=== PATIENT | female | born 1990 | race Two or more races ===

== ENCOUNTER 2018-03-27 08:41 | Emergency (ER) | payer MEDICAID ==
[2018-03-27 09:14] VITALS: BP 138/82
--- NOTE | 2018-03-27 09:24 | ER Document Report ---
ED Medical Screen (RME) - General Chief Complaint: Abdominal Pain Stated Complaint: RIGHT UPPER QUADRANT PAIN Time Seen by Provider: 03/27/18 09:17 Notes: RAPID MEDICAL EVALUATION DISCLOSURE I have seen this patient as part of a Rapid Medical Evaluation and, if applicable, placed any initially appropriate orders. The patient will be seen and fully evaluated, including a full history and physical exam, by a provider ( in Main ED or Fast Track) when a room becomes available. 27-year-old female PMH cholecystectomy here with complaints of right upper quadrant abdominal pain ongoing for the past 2 weeks. Pain is constant nonradiating. It is worse with pressing on the area but, at times, it is improved with pressing on the area. It is not worse with eating. She does not have fevers chills nausea vomiting dysuria hematuria frequency hesitancy. She thinks she might have a UTI. EXAM No abdominal TTP TRAVEL OUTSIDE OF THE [place] IN LAST 30 DAYS: No - Related Data Allergies/Adverse Reactions: No Known Allergies Allergy (Verified 09/13/16 07:46) Past Medical History - Social History Frequency of alcohol use: Occasional Drug Abuse: None Renal/ Medical History: Denies: Hx Peritoneal Dialysis Past Surgical History: Reports: Hx Section, Hx Cholecystectomy - Immunizations Immunizations up to date: Yes Hx Diphtheria, Pertussis, Tetanus Vaccination: Yes Physical Exam - Vital signs Vitals: Temp Pulse Resp BP Pulse Ox 98.1 F 72 16 138/82 H 99 03/27/18 09:10 03/27/18 09:10 03/27/18 09:10 03/27/18 09:10 03/27/18 09:10 Course - Vital Signs Vital signs: Temp Pulse Resp BP Pulse Ox 98.1 F 72 16 138/82 H 99 03/27/18 09:10 03/27/18 09:10 03/27/18 09:10 03/27/18 09:10 03/27/18 09:10
[2018-03-27 09:49] LABS: ABSOLUTE BASOPHILS # (AUTO) 0.1 10^3/uL (0.0-0.2); ABSOLUTE EOSINOPHILS # (AUTO) 0.3 10^3/uL (0.0-0.6); ABSOLUTE LYMPHOCYTES (AUTO) 2.3 10^3/uL (0.5-4.7); ABSOLUTE MONOCYTES (AUTO) 0.6 10^3/uL (0.1-1.4); ABSOLUTE NEUT (AUTO) 6.2 10^3/uL (1.7-8.2); BASOPHILS % (AUTO) 0.6 % (0-2); EOSINOPHILS % (AUTO) 2.9 % (0-6); HEMATOCRIT 40.5 % (36.0-47.0); HEMOGLOBIN 13.4 g/dL (12.0-15.5); LYMPHOCYTES % (AUTO) 24.7 % (13-45); MEAN CORPUSCULAR HGB CONC 33.1 g/dL (32.0-36.0); MEAN CORPUSCULAR VOLUME 82 fl (80-97); MONOCYTES % (AUTO) 6.2 % (3-13); PLATELET COUNT 358 10^3/uL (150-450); RED BLOOD COUNT 4.96 10^6/uL (3.72-5.28); RED CELL DISTRIBUTION WIDTH 15.9 % (11.5-14.0); SEGMENTED NEUTROPHILS % (AUTO) 65.6 % (42-78); TOTAL CELLS COUNTED % (AUTO) 100 %; WHITE BLOOD COUNT 9.4 10^3/uL (4.0-10.5)
[2018-03-27 09:52] LABS: APPEARANCE,URINE CLEAR; BILIRUBIN,URINE NEGATIVE (NEGATIVE); COLOR,URINE STRAW; GLUCOSE, URINE NEGATIVE (NEGATIVE); KETONES,URINE NEGATIVE (NEGATIVE); LEUKOCYTE ESTERASE,URINE NEGATIVE (NEGATIVE); NITRITE,URINE NEGATIVE (NEGATIVE); PROTEIN,URINE NEGATIVE (NEGATIVE); URINE SPECIFIC GRAVITY 1.006; UROBILINOGEN,URINE NEGATIVE mg/dL (<2.0)
[2018-03-27] MEDS ORDERED: MAG HYDROX/AL HYDROX/SIMETH SUSP 30 ML UDCUP PO ONE (09:58)
[2018-03-27] MEDS ORDERED: LIDOCAINE 2% VISCOUS SOLN 20 ML UDCUP PO ONE (09:58)
[2018-03-27] MEDS ORDERED: METOCLOPRAMIDE HCL ORAL SOLN 10 MG/10 ML UDCUP PO ONE (09:58)
[2018-03-27 10:10] LABS: ALANINE AMINOTRANSFERASE 21 U/L (9-52); ALBUMIN 4.3 g/dL (3.5-5.0); ALKALINE PHOSPHATASE 116 U/L (38-126); ANION GAP 13 (5-19); ASPARTATE AMINO TRANSFERASE 21 U/L (14-36); BILIRUBIN,DIRECT 0.2 mg/dL (0.0-0.4); BILIRUBIN,TOTAL 0.2 mg/dL (0.2-1.3); BLOOD UREA NITROGEN 8 mg/dL (7-20); CALCIUM 9.8 mg/dL (8.4-10.2); CARBON DIOXIDE 23 mmol/L (22-30); CHLORIDE 108 mmol/L (98-107); GLUCOSE 94 mg/dL (75-110); LIPASE 75.8 U/L (23-300); POTASSIUM 4.5 mmol/L (3.6-5.0); SODIUM 144.4 mmol/L (137-145); TOTAL PROTEIN 7.5 g/dL (6.3-8.2)
--- NOTE | 2018-03-27 10:45 | ER Document Report ---
ED GI/ - General Chief Complaint: Abdominal Pain Stated Complaint: RIGHT UPPER QUADRANT PAIN Time Seen by Provider: 03/27/18 09:17 Mode of Arrival: Ambulatory Information source: Patient Notes: Pt is a 27 year old female who presents to the ER today for upper abdominal pain , ruq pain for approximately 2 weeks. She works at a [employer] and eats a lot of greasy food. She admits to having acid reflux and taking some tums occasionally. She does not have her gallbladder. She denies vomiting but admits to "bad" nausea. She denies diarrhea. Her last bm was today and normal. She denies fever/chills. TRAVEL OUTSIDE OF THE [place] IN LAST 30 DAYS: No - Related Data Allergies/Adverse Reactions: No Known Allergies Allergy (Verified 09/13/16 07:46) Past Medical History - General Information source: Patient - Social History Smoking Status: Current Every Day Smoker Frequency of alcohol use: Occasional Drug Abuse: None Family History: Reviewed & Not Pertinent Patient has suicidal ideation: No Patient has homicidal ideation: No Renal/ Medical History: Denies: Hx Peritoneal Dialysis Past Surgical History: Reports: Hx Section, Hx Cholecystectomy - Immunizations Immunizations up to date: Yes Hx Diphtheria, Pertussis, Tetanus Vaccination: Yes Review of Systems - Review of Systems Constitutional: No symptoms reported EENT: No symptoms reported Cardiovascular: No symptoms reported Respiratory: No symptoms reported Gastrointestinal: See HPI Genitourinary: No symptoms reported Female Genitourinary: No symptoms reported Musculoskeletal: No symptoms reported Skin: No symptoms reported Hematologic/Lymphatic: No symptoms reported Neurological/Psychological: No symptoms reported Physical Exam - Vital signs Vitals: Temp Pulse Resp BP Pulse Ox 98.1 F 72 16 138/82 H 99 03/27/18 09:10 03/27/18 09:10 03/27/18 09:10 03/27/18 09:10 03/27/18 09:10 - Notes Notes: PHYSICAL EXAMINATION: GENERAL: Well-appearing, smiling, and in no acute distress. HEAD: Atraumatic, normocephalic. EYES: Pupils equal round and reactive to light, extraocular movements intact, sclera anicteric, conjunctiva are normal. NECK: Normal range of motion, supple without lymphadenopathy LUNGS: CTAB and equal. No wheezes rales or rhonchi. HEART: Regular rate and rhythm without murmurs ABDOMEN: Soft, epigastric, ruq tenderness. No guarding, no rebound BACK: no vertebral tenderness, normal ROM GI/: no CVA tenderness EXTREMITIES: Normal range of motion, no pitting edema. No cyanosis. NEUROLOGICAL: Cranial nerves grossly intact. Normal sensory/motor exams. PSYCH: Normal mood, normal affect. SKIN: Warm, Dry, normal turgor, no rashes or lesions noted Course - Re-evaluation Re-evalutation: 03/27/18 11:52 labwork is unremarkable today including normal lipase, negative , and normal liver enzymes. pt feels 100% better after GI cocktail, I will start her on carafate and prilosec, advise no greasy foods and no taking any NSAIDS. I did educate her on these as she's been taking a lot of naproxen she tells me after diagnosis. - Vital Signs Vital signs: Temp Pulse Resp BP Pulse Ox 98.1 F 72 16 138/82 H 99 03/27/18 09:10 03/27/18 09:10 03/27/18 09:10 03/27/18 09:10 03/27/18 09:10 - Laboratory Result Diagrams: 03/27/18 09:32 03/27/18 09:32 Laboratory results interpreted by me: 03/27/18 03/27/18 09:32 09:32 RDW 15.9 H Chloride 108 H Discharge - Discharge Clinical Impression: Epigastric pain, RUQ abdominal pain Condition: Stable Disposition: HOME, SELF-CARE Additional Instructions: Return immediately for any new or worsening symptoms. Follow up with primary care provider, call tomorrow to make followup appointment. Prescriptions: Omeprazole Magnesium [Prilosec Otc] 20 mg PO BID #40 tablet. Sucralfate [Carafate 1 gm Tablet] 1 gm PO ACHS #40 tablet Forms: Return to Work Referrals: VICKY PINEDA MD [ACTIVE STAFF] - Follow up as needed
== END 2018-03-27 11:25 | disposition home or self-care (01) ==
LOC: ER 08:41
DX: R10.11 Right upper quadrant pain (principal); R10.13 Epigastric pain; F17.200 Nicotine dependence, unspecified, uncomplicated; Z90.49 Acquired absence of other specified parts of digestive tract
CPT/HCPCS: 99284; 36415; 83690; 85025; 81025; 80053; 81001; J3490 ×3

== ENCOUNTER 2018-10-08 08:35 | Emergency (ER) | payer MEDICAID ==
[2018-10-08] MEDS ORDERED: ALBUTEROL SULFATE 0.083% NEB 2.5 MG/3 ML AMPUL NEB ONE (09:15)
--- NOTE | 2018-10-08 09:25 | ER Document Report ---
ED Respiratory Problem - General Chief Complaint: Shortness Of Breath Stated Complaint: FLU SYMPTOMS Time Seen by Provider: 10/08/18 09:05 TRAVEL OUTSIDE OF THE [place] IN LAST 30 DAYS: No - HPI Notes: Patient is a 27-year-old female that presents to the emergency department for chief complaint of chest pain and shortness of breath. Patient is with a history of 2 sections in the past at 27 weeks 1 day gestational age. She started having substernal chest pain that radiates to her back yesterday morning. Yesterday afternoon and evening she began to feel very short of breath. She is 1 of her daughter's albuterol treatments which she gave her minimal and temporary relief. She states the pain has been constant and feels like a sharp pain. There is no aggravating or relieving factors to her chest pain. She denies any diaphoresis, nausea, vomiting and palpitations. She denies history of PE in the past. She denies any family history of pulmonary embolism. Patient also states she has had a dry cough for the last few days but denies any fevers. She has tried TheraFlu and over-the- counter cough syrup with no improvement of her coughing. She is currently scheduled for section on January 06. Past Medical History: Negative Past Surgical History: x2 Social History: History of heroin abuse. History of cocaine abuse. Daily tobacco user currently. Denies any alcohol. Family History: Reviewed and noncontributory for presenting illness Allergies: Reviewed, see documented allergy list. REVIEW OF SYSTEMS: CONSTITUTIONAL : No fever No chills No diaphoresis No recent illness EENT: No vision changes No congestion No sore throat CARDIOVASCULAR: chest pain No palpitations RESPIRATORY: shortness of breath cough difficulty breathing GASTROINTESTINAL: No abdominal pain No nausea No vomiting No diarrhea GENITOURINARY: No dysuria No hematuria No difficulty urinating MUSCULOSKELETAL: No back pain No leg pain No arm pain SKIN: No rashes No lesions LYMPHATIC: No swollen, enlarged glands. NEUROLOGICAL: No lightheadedness No headache No weakness No paresthesias PSYCHIATRIC: No anxiety No depression PHYSICAL EXAMINATION: Vital signs reviewed, nursing noted reviewed. GENERAL: Well-appearing, well-nourished and in moderate acute distress. HEAD: Atraumatic, normocephalic. EYES: Eyes appear normal, extraocular movements intact, sclera anicteric, conjunctiva are normal. ENT: nares patent, oropharynx clear without exudates. Moist mucous membranes. NECK: Normal range of motion, supple without lymphadenopathy LUNGS: Diminished bilaterally. No wheezing. HEART: Tachycardic, regular rhythm ABDOMEN: Soft, nontender, gravid uterus palpated above the umbilicus which is soft and nontender. No rebound, guarding, or rigidity. EXTREMITIES: Nontender, good range of motion, no pitting or edema. NEUROLOGICAL: No focal neurological deficits. Moves all extremities spontaneously Motor and sensory grossly intact on exam. PSYCH: Normal mood, normal affect. SKIN: Warm, Dry, normal turgor, no rashes or lesions noted on exposed skin - Related Data Allergies/Adverse Reactions: No Known Allergies Allergy (Verified 09/13/16 07:46) Past Medical History - Social History Smoking Status: Current Some Day Smoker Chew tobacco use (# tins/day): No Frequency of alcohol use: None Drug Abuse: Heroin, Marijuana, Methamphetamine Family History: Reviewed & Not Pertinent Patient has suicidal ideation: No Patient has homicidal ideation: No Renal/ Medical History: Denies: Hx Peritoneal Dialysis Past Surgical History: Reports: Hx Section, Hx Cholecystectomy - Immunizations Immunizations up to date: Yes Hx Diphtheria, Pertussis, Tetanus Vaccination: Yes Physical Exam - Vital signs Vitals: Temp Pulse Resp BP Pulse Ox 98.8 F 126 H 20 126/73 H 83 L 10/08/18 08:42 10/08/18 08:42 10/08/18 08:42 10/08/18 08:42 10/08/18 08:42 Course - Re-evaluation Re-evalutation: 10/08/18 09:25 Vitals reviewed. Nursing notes reviewed. Patient is hypoxic on 4 L nasal cannula and was placed on nonrebreather which improved her oxygen saturation to 99%. She is tachycardic complaining of shortness of breath and chest pain and I am concerned for pulmonary embolism. CTA chest. Was ordered. At [address] Dickson, MACHINIST WOOD, that the patient was in the emergency room and I am concern for pulmonary embolism given her significant hypoxia. She agreed if pulmonary embolism is present to begin Lovenox. Patient's EKG shows a sinus tachycardia with no dysrhythmia. 10/08/18 10:46 Patient reevaluated. Her heart rate is improving. She is still oxygenating on nonrebreather however her work of breathing has increased. CT shows no acute pulmonary embolism but she does have groundglass opacities bilateral concerning for ARDS. Patient is receiving aerosols. She was placed on BiPAP for respiratory support. Case was again discussed with MACHINIST WOOD who recommends admission to the hospitalist group. Case discussed with Dr. Garcia who does not feel comfortable managing this patient in this hospital because of the lack of pulmonary support and high potential that this patient will require intubation and continued to decompensate. They recommend transferring to a facility with in-house retail banker. Patient care discussed with [facility] transfer, currently pending callback for admission. 10/08/18 11:09 Patients care discussed with Dr. Navarro at [facility] who will accept the patient for transfer but they do not currently have any ICU beds. He states it will likely be over 24 hours before an ICU bed is available and he recommends attempting placement at another facility. At this time patient's care was discussed with [facility] transfer line who believes that they would have an ICU bed available. I am currently waiting to hear from admitting physician. Patient is was not tolerating BiPAP, she is now on CPAP and seems to be tolerating that well. 10/08/18 11:58 Patient's care was discussed with Dr. Hunter my critical care, and Dr. Freeman , MACHINIST WOOD at [facility]. Dr. Hunter accepted patient for transfer. Patient was intubated for continued respiratory decompensation and hypoxia. Patient's heart tones prior to intubation were 159. MACHINIST WOOD Dr. Dickson was at bedside during intubation monitoring baby. Baby had heart tones in the 150s and good movement throughout intubation. Patient's oxygen saturation did not decrease past 100% during intubation. She is sedated on the ventilator with propofol and fentanyl. Patient will be transferred to [facility] for further management. I did update MACHINIST WOOD on baby status during and post intubation. Patient's family is now at bedside and in agreement with plan of care. Patient is stable for transport. Laboratory 10/08/18 10/08/18 10/08/18 09:05 09:05 09:05 WBC 19.3 H RBC 3.78 Hgb 10.9 L Hct 31.8 L MCV 84 MCH 28.7 MCHC 34.2 RDW 14.1 H Plt Count 339 Seg Neutrophils % 90.4 H Lymphocytes % 6.8 L Monocytes % 2.1 L Eosinophils % 0.3 Basophils % 0.4 Absolute Neutrophils 17.4 H Absolute Lymphocytes 1.3 Absolute Monocytes 0.4 Absolute Eosinophils 0.1 Absolute Basophils 0.1 Carbonic Acid HCO3/H2CO3 Ratio ABG pH ABG pCO2 ABG pO2 ABG HCO3 ABG Total CO2 ABG O2 Saturation ABG Base Excess FiO2 Sodium 138.3 Potassium 3.5 L Chloride 102 Carbon Dioxide 23 Anion Gap 13 BUN < 2 L Creatinine 0.48 L Est GFR ( Amer) > 60 Est GFR (Non-Af Amer) > 60 Glucose 109 Calcium 9.1 Total Bilirubin 0.7 Direct Bilirubin 0.4 Neonat Total Bilirubin Not Reportable Neonat Direct Bilirubin Not Reportable Neonat Indirect Bili Not Reportable AST 33 ALT 6 L Alkaline Phosphatase 197 H Troponin I < 0.012 NT-Pro-B Natriuret Pep Total Protein 7.1 Albumin 3.6 Urine Color Urine Appearance Urine pH Ur Specific [place] Urine Protein Urine Glucose (UA) Urine Ketones Urine Blood Urine Nitrite Urine Bilirubin Urine Urobilinogen Ur Leukocyte Esterase Urine WBC (Auto) Urine RBC (Auto) Squamous Epi Cells Auto Urine Ascorbic Acid 10/08/18 10/08/18 10/08/18 09:05 09:10 10:45 WBC RBC Hgb Hct MCV MCH MCHC RDW Plt Count Seg Neutrophils % Lymphocytes % Monocytes % Eosinophils % Basophils % Absolute Neutrophils Absolute Lymphocytes Absolute Monocytes Absolute Eosinophils Absolute Basophils Carbonic Acid 1.02 L HCO3/H2CO3 Ratio 22:1 ABG pH 7.44 ABG pCO2 33.9 L ABG pO2 52.3 L ABG HCO3 22.5 ABG Total CO2 23.5 ABG O2 Saturation 88.6 L ABG Base Excess -1.1 FiO2 10L Sodium Potassium Chloride Carbon Dioxide Anion Gap BUN Creatinine Est GFR ( Amer) Est GFR (Non-Af Amer) Glucose Calcium Total Bilirubin Direct Bilirubin Neonat Total Bilirubin Neonat Direct Bilirubin Neonat Indirect Bili AST ALT Alkaline Phosphatase Troponin I NT-Pro-B Natriuret Pep 429 H Total Protein Albumin Urine Color YELLOW Urine Appearance CLEAR Urine pH 6.0 Ur Specific [place] 1.005 Urine Protein 30 H Urine Glucose (UA) NEGATIVE Urine Ketones NEGATIVE Urine Blood NEGATIVE Urine Nitrite NEGATIVE Urine Bilirubin NEGATIVE Urine Urobilinogen 4.0 H Ur Leukocyte Esterase NEGATIVE Urine WBC (Auto) 8 Urine RBC (Auto) 0 Squamous Epi Cells Auto 1 Urine Ascorbic Acid NEGATIVE Chest X-Ray 10/08/18 00:00 IMPRESSION: Pulmonary edema. Tube placement as described. Chest/Abdomen CTA 10/08/18 09:14 IMPRESSION: 1. NORMAL CTA OF THE CHEST. NO PULMONARY EMBOLI. 2. EXTENSIVE DIFFUSE BILATERAL GROUND-GLASS INFILTRATES. POSSIBLE ETIOLOGIES INCLUDE PNEUMONIA, PULMONARY EDEMA, OR PNEUMONITIS. - Vital Signs Vital signs: Temp Pulse Resp BP Pulse Ox 98.8 F 126 H 34 H 104/59 L 100 10/08/18 08:42 10/08/18 08:42 10/08/18 10:16 10/08/18 10:16 10/08/18 10:16 - Laboratory Result Diagrams: 10/08/18 09:05 10/08/18 09:05 Laboratory results interpreted by me: 10/08/18 10/08/18 10/08/18 09:05 09:05 09:05 WBC 19.3 H Hgb 10.9 L Hct 31.8 L RDW 14.1 H Seg Neutrophils % 90.4 H Lymphocytes % 6.8 L Monocytes % 2.1 L Absolute Neutrophils 17.4 H Carbonic Acid ABG pCO2 ABG pO2 ABG O2 Saturation Potassium 3.5 L BUN < 2 L Creatinine 0.48 L ALT 6 L Alkaline Phosphatase 197 H NT-Pro-B Natriuret Pep 429 H Urine Protein Urine Urobilinogen 10/08/18 10/08/18 09:10 10:45 WBC Hgb Hct RDW Seg Neutrophils % Lymphocytes % Monocytes % Absolute Neutrophils Carbonic Acid 1.02 L ABG pCO2 33.9 L ABG pO2 52.3 L ABG O2 Saturation 88.6 L Potassium BUN Creatinine ALT Alkaline Phosphatase NT-Pro-B Natriuret Pep Urine Protein 30 H Urine Urobilinogen 4.0 H - EKG Interpretation by Me Additional EKG results interpreted by me: 10/08/18 09:26 Interpreted by myself Sinus tachycardia, rate 107, normal axis, no ectopy, no ST elevation Critical Care Note - Critical Care Note Total time excluding time spent on procedures (mins): 110 Comments: Hypoxic respiratory failure. Management of respiratory status and sedation. Multiple conversations with specialist at multiple facilities and frequent re- evaluations. Discharge - Discharge Clinical Impression: ARDS (adult respiratory distress syndrome) Pneumonia Qualifiers: Pneumonia type: due to unspecified organism Laterality: bilateral Lung location : unspecified part of lung Qualified Code(s): J18.9 - Pneumonia, unspecified organism Condition: Stable Disposition: [facility]
[2018-10-08 09:30] LABS: APPEARANCE,URINE CLEAR; BILIRUBIN,URINE NEGATIVE (NEGATIVE); COLOR,URINE YELLOW; GLUCOSE, URINE NEGATIVE (NEGATIVE); KETONES,URINE NEGATIVE (NEGATIVE); LEUKOCYTE ESTERASE,URINE NEGATIVE (NEGATIVE); NITRITE,URINE NEGATIVE (NEGATIVE); PROTEIN,URINE 30 mg/dL (NEGATIVE); URINE SPECIFIC GRAVITY 1.005
[2018-10-08 09:35] LABS: ABSOLUTE BASOPHILS # (AUTO) 0.1 10^3/uL (0.0-0.2); ABSOLUTE EOSINOPHILS # (AUTO) 0.1 10^3/uL (0.0-0.6); ABSOLUTE LYMPHOCYTES (AUTO) 1.3 10^3/uL (0.5-4.7); ABSOLUTE MONOCYTES (AUTO) 0.4 10^3/uL (0.1-1.4); ABSOLUTE NEUT (AUTO) 17.4 10^3/uL (1.7-8.2); BASOPHILS % (AUTO) 0.4 % (0-2); EOSINOPHILS % (AUTO) 0.3 % (0-6); HEMATOCRIT 31.8 % (36.0-47.0); HEMOGLOBIN 10.9 g/dL (12.0-15.5); LYMPHOCYTES % (AUTO) 6.8 % (13-45); MEAN CORPUSCULAR HEMOGLOBIN 28.7 pg (27.0-33.4); MEAN CORPUSCULAR HGB CONC 34.2 g/dL (32.0-36.0); MEAN CORPUSCULAR VOLUME 84 fl (80-97); MONOCYTES % (AUTO) 2.1 % (3-13); PLATELET COUNT 339 10^3/uL (150-450); RED BLOOD COUNT 3.78 10^6/uL (3.72-5.28); RED CELL DISTRIBUTION WIDTH 14.1 % (11.5-14.0); SEGMENTED NEUTROPHILS % (AUTO) 90.4 % (42-78); TOTAL CELLS COUNTED % (AUTO) 100 %; WHITE BLOOD COUNT 19.3 10^3/uL (4.0-10.5)
[2018-10-08 09:48] LABS: ALANINE AMINOTRANSFERASE 6 U/L (9-52); ALBUMIN 3.6 g/dL (3.5-5.0); ALKALINE PHOSPHATASE 197 U/L (38-126); ANION GAP 13 (5-19); ASPARTATE AMINO TRANSFERASE 33 U/L (14-36); BILIRUBIN,DIRECT 0.4 mg/dL (0.0-0.4); BILIRUBIN,TOTAL 0.7 mg/dL (0.2-1.3); CALCIUM 9.1 mg/dL (8.4-10.2); CARBON DIOXIDE 23 mmol/L (22-30); CHLORIDE 102 mmol/L (98-107); GLUCOSE 109 mg/dL (75-110); POTASSIUM 3.5 mmol/L (3.6-5.0); SODIUM 138.3 mmol/L (137-145); TOTAL PROTEIN 7.1 g/dL (6.3-8.2)
[2018-10-08 09:49] LABS: BLOOD UREA NITROGEN < 2 mg/dL (7-20)
--- NOTE | 2018-10-08 10:27 | RADIOLOGY REPORT (SQ) ---
EXAM DESCRIPTION: CTA CHEST COMPLETED DATE/TIME: 10/08/2018 10:06 am REASON FOR STUDY: PE study COMPARISON: None. TECHNIQUE: CT scan of the chest performed using helical scanning technique with dynamic intravenous contrast injection. Images reviewed with lung, soft tissue and bone windows. Reconstructed coronal and sagittal MPR images reviewed. Additional 3 dimensional post-processing performed to develop Maximal Intensity Projection images (OR P). All images stored on PACS. All CT scanners at this facility use dose modulation, iterative reconstruction, and/or weight based d osing when appropriate to reduce radiation dose to as low as reasonably achievable (ALARA). [facility]: Dose Right [facility]: CareDose [facility]: Dose Right [facility]: Teradose 4D [facility]: BeVocal CONTRAST TYPE AND DOSE: contrast/concentration: Isovue 350.00 mg/ml; Total Contrast Delivered: 69.0 ml; Total Saline Delivered: 64.8 ml Contrast bolus adequate for pulmonary arteries and aorta. RENAL FUNCTION: None required. The patient is less than 50 years old. RADIATION DOSE: CT Rad equipment meets quality standard of care and radiation dose reduction techniq ues were employed. CTDIvol: 16.5 - 20.2 mGy. DLP: 667 mGy-cm. . LIMITATIONS: None. FINDINGS: LUNGS AND PLEURA: Extensive diffuse bilateral ground-glass infiltrates. No pleural effusi ons or pleural calcifications. AORTA AND GREAT VESSELS: No aneurysm. No dissection. HEART: No pericardial effusion. No significant coronary artery calcifications. PULMONARY ARTERIES: No emboli visualized in the main pulmonary arteries or the segmental branches. HILAR AND MEDIASTINAL STRUCTURES: No identified masses or abnormal nodes. HARDWARE: None in the chest. UPPER ABDOMEN: No significant findings. Limited exam. THYROID AND OTHER SOFT TISSUES: No masses. No adenopathy. BONES: No acute or significant finding. 3D MIPS: Confirm above findings. OTHER: No other significant finding. IMPRESSION: 1. NORMAL CTA OF THE CHEST. NO PULMONARY EMBOLI. 2. EXTENSIVE DIFFUSE BILATERAL GROUND-GLASS INFILTRATES. POSSIBLE ETIOLOGIES INCLUDE PNEUMONIA, PULM ONARY EDEMA, OR PNEUMONITIS. COMMENT: Quality ID # [id number]: Final reports with documentation of one or more dose reduction techniques (e.g., Automated exposure control, adjustment of the mA and/or kV according to patient size, use of iterative reconstruction technique) TECHNICAL DOCUMENTATION: JOB ID: [id number]- All Rights Reserved Reading location - IP/workstation name: [email or web address]
[2018-10-08] MEDS ORDERED: CEFTRIAXONE INJ 1000 MG VIAL IV ONE (10:35)
[2018-10-08] MEDS ORDERED: AZITHROMYCIN INJ 500 MG VIAL IV ONE (10:36)
[2018-10-08 11:04] LABS: ARTERIAL BLOOD BASE EXCESS -1.1 mmol/L; ARTERIAL BLOOD FIO2 10L; ARTERIAL BLOOD H2CO3 1.02 mmol/L (1.05-1.35); ARTERIAL BLOOD HCO3 22.5 mmol/L (20-24); ARTERIAL BLOOD O2 SATURATION 88.6 % (94-98); ARTERIAL BLOOD PCO2 33.9 mmHg (35-45); ARTERIAL BLOOD PH 7.44 (7.35-7.45); ARTERIAL BLOOD PO2 52.3 mmHg (80-100); ARTERIAL BLOOD TOTAL CO2 23.5 mmol/L (21-25)
[2018-10-08] MEDS ORDERED: PROPOFOL INJ 200 MG/20 ML VIAL IV ONE (11:32)
[2018-10-08] MEDS ORDERED: ETOMIDATE INJ/PF 20 MG/10 ML SDV IV ONE (11:32)
[2018-10-08] MEDS ORDERED: PROPOFOL 1,000 MG/100 ML INFUS..BTL IV ONE ×2 (11:41→12:25)
[2018-10-08] MEDS ORDERED: FENTANYL CITRATE INJ/PF 100 MCG/2 ML AMPUL ONE ×3 (11:55→12:12)
--- NOTE | 2018-10-08 12:04 | RADIOLOGY REPORT (SQ) ---
EXAM DESCRIPTION: CHEST SINGLE VIEW COMPLETED DATE/TIME: 10/08/2018 11:55 am REASON FOR STUDY: ET TUBE PLACEMENT COMPARISON: None. EXAM PARAMETERS: NUMBER OF VIEWS: One view. TECHNIQUE: Single frontal radiographic view of the chest acquired. RADIATION DOSE: NA LIMITATIONS: None. FINDINGS: LUNGS AND PLEURA: Pulmonary edema is present. MEDIASTINUM AND HILAR STRUCTURES: No masses. Contour normal. HEART AND VASCULAR STRUCTURES: Heart size is borderline. BONES: No acute findings. HARDWARE: An endotracheal tube has its tip 5 cm above the angela. And NG tube extends to the stomach . OTHER: No other significant finding. IMPRESSION: Pulmonary edema. Tube placement as described. TECHNICAL DOCUMENTATION: JOB ID: [id number] [employer]- All Rights Reserved Reading location - IP/workstation name: [email or web address]
[2018-10-08] MEDS ORDERED: VECURONIUM BROMIDE INJ 10 MG VIAL IV ONE (12:07)
[2018-10-08 12:43] VITALS: BP 101/62
--- NOTE | 2018-10-08 13:38 | EKG REPORT ---
SEVERITY:- ABNORMAL ECG - SINUS TACHYCARDIA NONSPECIFIC ST-T CHANGES ANTERIOR LEADS. : Confirmed by: Cuong Pelayo MD 08-Oct-2018 13:37:35
[2018-10-08] MEDS ORDERED: SUCCINYLCHOLINE CHLORIDE INJ 200 MG/10 ML VIAL ONE (20:48)
== END 2018-10-08 12:45 | disposition short-term general hospital (02) ==
LOC: ER 08:35
DX: O99.512 Diseases of the respiratory system complicating pregnancy, second trimester (principal); J80 Acute respiratory distress syndrome; J18.9 Pneumonia, unspecified organism; O26.892 Other specified pregnancy related conditions, second trimester; R07.9 Chest pain, unspecified; R00.0 Tachycardia, unspecified; O99.332 Smoking (tobacco) complicating pregnancy, second trimester; Z3A.27 27 weeks gestation of pregnancy
CPT/HCPCS: 93005; 94640; 99291; 99292; 51702; 36415; 87040; 82803; 85025; 80053; 81001; 84484; 83880; 71045; 71275; 94660 ×2; 93010; J3010; J2704 ×2; J0330; J3490

== ENCOUNTER 2018-11-28 20:44 | Emergency (ER) | payer MEDICAID ==
[2018-11-28 20:50] VITALS: BP 121/71
== END 2018-11-28 22:30 | disposition left against medical advice (07) ==
LOC: ER 20:44
DX: Z53.21 Procedure and treatment not carried out due to patient leaving prior to being seen by health care provider (principal); R50.9 Fever, unspecified

== ENCOUNTER 2018-11-30 00:42 | Emergency (ER) | payer MEDICAID ==
[2018-11-30] MEDS ORDERED: IPRATROPIUM/ALBUTEROL 0.5-2.5 MG/3 ML AMPUL NEB ONE (00:57)
[2018-11-30] MEDS ORDERED: METHYLPREDNISOLONE INJ 125 MG/2 ML SDV IV ONE (00:57)
[2018-11-30] MEDS ORDERED: METHYLPREDNISOLONE INJ 125 MG/2 ML SDV ONE (00:59)
[2018-11-30] MEDS ORDERED: MAGNESIUM SULFATE/D5W 2 GM/200 ML RTUPB IV ONE (00:59)
[2018-11-30] MEDS ORDERED: RINGERS SOLUTION,LACTATED 2,000 ML IV ONE (01:08)
--- NOTE | 2018-11-30 01:09 | ER Document Report ---
ED General - General Chief Complaint: Breathing Difficulty Stated Complaint: TROUBLE BREATHING Time Seen by Provider: 11/30/18 00:54 Cannot obtain history due to: Unstable vital signs Notes: Patient is a 27-year-old female at 34 weeks and 1 day with a history of 2 previous C-sections who presents in respiratory distress. The patient reports for the past 3 days she has had fever, cough, sore throat and has been exposed to multiple members in her family who have tested positive for flu. The patient reports that her work of breathing got increasingly worse tonight prompting her to come to the emergency department. She has been taking Tamiflu as prescribed by her NOTE TELLER starting 3 days ago. She states this is not improved her symptoms. Nothing worsens her symptoms. She states this feels somewhat similar to when she was hospitalized and required intubation in September but not as severe. She does note a diffuse body aching that is a throbbing, constant pain. TRAVEL OUTSIDE OF THE [place] IN LAST 30 DAYS: No - Related Data Allergies/Adverse Reactions: No Known Allergies Allergy (Verified 09/13/16 07:46) Past Medical History - General Information source: Patient, Relative Cannot obtain history due to: Unstable vital signs - Social History Smoking Status: Former Smoker Frequency of alcohol use: None Drug Abuse: None Lives with: Family Family History: Reviewed & Not Pertinent Renal/ Medical History: Denies: Hx Peritoneal Dialysis Past Surgical History: Reports: Hx Section, Hx Cholecystectomy - Immunizations Immunizations up to date: Yes Hx Diphtheria, Pertussis, Tetanus Vaccination: Yes Review of Systems - Review of Systems Notes: Constitutional: Positive for fever. HENT: Positive for sore throat. Eyes: Negative for visual changes. Cardiovascular: Negative for chest pain. Respiratory: Positive for shortness of breath. Gastrointestinal: Negative for abdominal pain, positive for nausea Genitourinary: Negative for dysuria. Musculoskeletal: Negative for back pain. Skin: Negative for rash. Neurological: Negative for headaches, weakness or numbness. 10 point ROS negative except as marked above and in HPI. Physical Exam - Vital signs Vitals: Temp Pulse Resp BP Pulse Ox 100.3 F 139 H 30 H 133/83 H 90 L 11/30/18 00:47 11/30/18 00:47 11/30/18 00:47 11/30/18 00:47 11/30/18 00:47 Interpretation: Tachycardic, Hypoxic, Tachypneic Notes: PHYSICAL EXAMINATION: GENERAL: Extremely ill in appearance, in moderate to severe respiratory distress HEAD: Atraumatic, normocephalic. EYES: Pupils equal round and reactive to light, extraocular movements intact, sclera anicteric, conjunctiva are normal. ENT: nares patent, oropharynx clear without exudates. Moderately dry mucous membranes. NECK: Normal range of motion, supple without lymphadenopathy LUNGS: Coarse rales in all lung aguila. Moderate to severe respiratory distress breathing approximately 45 times per minute on initial assessment. Diminished air movement in all lung aguila. Pleural ultrasound with B-lines throughout. HEART: Regular tachycardia without murmurs, bedside echocardiogram without regional wall motion abnormalities, no pericardial effusion ABDOMEN: Soft, nontender, normoactive bowel sounds. No guarding, no rebound. No masses appreciated. EXTREMITIES: Normal range of motion, no pitting or edema. No cyanosis. NEUROLOGICAL: No focal neurological deficits. Moves all extremities spontaneously and on command. PSYCH: Anxious SKIN: Warm, Dry, normal turgor, no rashes or lesions noted. Course - Re-evaluation Re-evalutation: 11/30/18 01:06 Patient presents in moderate to severe respiratory distress, crackles in all lung aguila, tachypneic into the low 40s saturating 89% on room air. She is cur rently 34 weeks . Patient has required intubation approximately 6 weeks ago under similar circumstances, found to have a pneumonia at that time. Was intubated and flown to [place]. Patient does however state that her symptoms do not appear as severe as her previous occasion. Patient is noted to be febrile in triage, was here 2 days ago but did not end up staying for full assessment and was febrile at that time as well. She is also tachycardic. The patient will be immediately placed on BiPAP to reduce her work of breathing and hopefully to prevent recurrent intubation. Bedside pleural ultrasound does show B-lines in all aguila. Bedside echocardiogram without any evidence of a pericardial effusion, global contractility is normal. ultrasound shows current heart rate at 145 bpm, active movement noted. Will begin IV fluids, magnesium, Solu-Medrol, continuous albuterol ipratropium nebulizers. Patient is critically ill, require frequent and regular reassessments. 11/30/18 01:29 Patient's work of breathing is much improved on BiPAP. She did receive 1 mg of Ativan for anxiety on BiPAP as she states she does have a difficult time tolerating the mask. On 40% FiO2 she is saturating 94%. Heart rate has come down to 130. Respirations currently 29 breaths/min. Will continue to reassess at regular intervals. 11/30/18 01:46 Patient's work of breathing continues to improve. Current respirations 32 breaths/min. Remaining into the low 90s on 30% FiO2. Have discussed that with the patient the need for transfer to a higher level of care given that she is currently 34 weeks , and had a critical level of care. We do not currently have highway safety engineer at this facility nor do we have to intensive care and she has required intubation in a similar setting in the past as well as long-term management at [facility] on a previous occasion. Patient and her family discussing transfer options as they would prefer [facility] as it is closer although I have encouraged transfer to [facility] as they have already seen and evaluated and manage the patient in the past under similar circumstances. 11/30/18 02:10 Influenza testing is negative although I do believe this is likely a false negative given overall clinical history. A chest x-ray has a picture consistent with ARDS. We are continue to work a second point of IV access. Patient is an extremely difficult stick. Awaiting blood work. Patient is continued to improve from a perspective work of breathing on BiPAP. I did discuss this case with Dr. Villa the NOTE TELLER diamond merchant to question whether or not we would need continuous monitoring in this context until transfer is able be completed. He states that this is not currently necessary as long as the patient maintains her saturations 11/30/18 03:09 Patient continues to have market improvement of her work of breathing, heart rate down to 122, respirations 30, blood pressure 121 on 90. Patient is receiving potassium repletion for a moderate hypokalemia 3.0. She is receiving ceftriaxone and azithromycin for possible coverage of a bacterial component to her picture of respiratory distress. The patient has also received acetaminophen for her initial fever. I have discussed this case at length with the patient sick patient's family at bedside. I have discussed this case with the attending MICU physician at [facility] Dr. Johnston who has accepted that patient in transfer. Patient has already gotten a dose of tamiflu today at home, has been on it since friday. 11/30/18 03:42 Patient has remained clinically improved, heart rate is now down to 112 respirations of 31. Pressures remain within acceptable limits. Air care has arrived for transport. Patient is appropriate for transfer at this time. - Vital Signs Vital signs: Temp Pulse Resp BP Pulse Ox 100.3 F 139 H 36 H 118/64 96 11/30/18 00:47 11/30/18 00:47 11/30/18 03:37 11/30/18 03:37 11/30/18 03:37 - Laboratory Result Diagrams: 11/30/18 02:12 11/30/18 02:12 Laboratory results interpreted by me: 11/30/18 11/30/18 11/30/18 02:12 02:12 02:12 WBC 16.8 H RBC 3.57 L Hgb 9.6 L Hct 28.6 L RDW 15.7 H Seg Neutrophils % 90.5 H Lymphocytes % 5.9 L Absolute Neutrophils 15.2 H VBG pCO2 32.7 L VBG HCO3 18.4 L Sodium 135.1 L Potassium 3.0 L* Carbon Dioxide 19 L BUN < 2 L Creatinine 0.48 L Glucose 155 H - Diagnostic Test Radiology reviewed: Image reviewed, Reports reviewed Radiology results interpreted by me: 11/30/18 01:56 Chest x-ray: Infiltrative pattern consistent with ARDS - EKG Interpretation by Me Additional EKG results interpreted by me: 11/30/18 01:56 Sinus tachycardia, rate 133. No ST elevations or depressions. QTC is 441. Critical Care Note - Critical Care Note Total time excluding time spent on procedures (mins): 78 Comments: Critical care time spent obtaining history from patient or surrogate, discuss ions with consultants, development of treatment plan with patient or surrogate, evaluation of patient's response to treatment, examination of patient, ordering and performing treatments and interventions, ordering and review of laboratory studies, re-evaluation of patient's condition, ordering and review of radiographic studies and review of old charts Discharge - Discharge Clinical Impression: Respiratory distress, ARDS (adult respiratory distress syndrome), Third trimester Sepsis Qualifiers: Sepsis type: sepsis due to unspecified organism Qualified Code(s): A41.9 - Sepsis, unspecified organism Condition: Critical Disposition: [facility]
[2018-11-30] MEDS ORDERED: LORAZEPAM INJ 2 MG/1 ML VIAL IV ONE ×2 (01:16→02:11)
[2018-11-30] MEDS: MAGNESIUM SULFATE/D5W 1 GM/100 ML RTUPB IV SCH ×2 (01:34→02:03)
[2018-11-30 01:52] LABS: A TYPE INFLUENZA AG NEGATIVE (NEGATIVE); B INFLUENZA AG NEGATIVE (NEGATIVE)
--- NOTE | 2018-11-30 02:07 | RADIOLOGY REPORT (SQ) ---
EXAM DESCRIPTION: XR CHEST 1 VIEW COMPLETED DATE/TME: 11/30/2018 00:56 CLINICAL HISTORY: 27 years Female, sob COMPARISON: None. NUMBER OF VIEWS/TECHNIQUE: 1/AP FINDINGS: Adequate lung volume, moderate mixed interstitial and airspace opacity with lower and central predominance, normal cardiac silhouette, and intact bony thorax. IMPRESSION: Moderate pulmonary edema pattern. Improved appearance compared with prior exam from October 08, 2018. Differential diagnosis includes pulmonary edema, multifocal pneumonia, and chronic interstitial lung disease.
[2018-11-30] MEDS ORDERED: ACETAMINOPHEN 325 MG TABLET PO ONE (02:12)
[2018-11-30 02:21] LABS: VENOUS BLOOD HCO3 18.4 mmol/L (20-32); VENOUS BLOOD PCO2 32.7 mmHg (35-63); VENOUS BLOOD PH 7.37 (7.30-7.42)
[2018-11-30 02:22] LABS: ABSOLUTE MONOCYTES (AUTO) 0.5 10^3/uL (0.1-1.4); ABSOLUTE NEUT (AUTO) 15.2 10^3/uL (1.7-8.2); BASOPHILS % (AUTO) 0.2 % (0-2); EOSINOPHILS % (AUTO) 0.2 % (0-6); HEMATOCRIT 28.6 % (36.0-47.0); HEMOGLOBIN 9.6 g/dL (12.0-15.5); LYMPHOCYTES % (AUTO) 5.9 % (13-45); MEAN CORPUSCULAR HGB CONC 33.7 g/dL (32.0-36.0); MEAN CORPUSCULAR VOLUME 80 fl (80-97); MONOCYTES % (AUTO) 3.2 % (3-13); PLATELET COUNT 250 10^3/uL (150-450); RED BLOOD COUNT 3.57 10^6/uL (3.72-5.28); RED CELL DISTRIBUTION WIDTH 15.7 % (11.5-14.0); SEGMENTED NEUTROPHILS % (AUTO) 90.5 % (42-78); TOTAL CELLS COUNTED % (AUTO) 100 %; WHITE BLOOD COUNT 16.8 10^3/uL (4.0-10.5)
[2018-11-30 02:38] LABS: ANION GAP 9 (5-19); CALCIUM 8.8 mg/dL (8.4-10.2); CARBON DIOXIDE 19 mmol/L (22-30); CHLORIDE 107 mmol/L (98-107); GLUCOSE 155 mg/dL (75-110); SODIUM 135.1 mmol/L (137-145)
[2018-11-30 02:39] LABS: BLOOD UREA NITROGEN < 2 mg/dL (7-20)
[2018-11-30] MEDS ORDERED: POTASSI CL 20 MEQ/50 ML RIDER 20 MEQ/50 ML RTUPB IV ONE (02:45)
[2018-11-30] MEDS ORDERED: AZITHROMYCIN INJ 500 MG VIAL IV ONE (02:45)
[2018-11-30] MEDS ORDERED: CEFTRIAXONE INJ 1000 MG VIAL IV ONE (02:46)
[2018-11-30 02:50] LABS: NT PRO BNP 57 pg/mL (<125)
[2018-11-30 02:54] LABS: TROPONIN I < 0.012 ng/mL
[2018-11-30] MEDS ORDERED: LIDOCAINE 5% (700 MG) TRANSDERMAL ADH..PATCH TP ONE (03:38)
[2018-11-30 03:43] VITALS: BP 114/64
--- NOTE | 2018-11-30 07:03 | EKG REPORT ---
SEVERITY:- ABNORMAL ECG - SINUS TACHYCARDIA REPOL ABNRM SUGGESTS ISCHEMIA, DIFFUSE LEADS : Confirmed by: Teressa Hubbard 30-Nov-2018 07:02:33
== END 2018-11-30 04:30 | disposition short-term general hospital (02) ==
LOC: ER 00:42
DX: O99.513 Diseases of the respiratory system complicating pregnancy, third trimester (principal); J80 Acute respiratory distress syndrome; O85 Puerperal sepsis; O26.893 Other specified pregnancy related conditions, third trimester; R50.9 Fever, unspecified; R05 Cough; J02.9 Acute pharyngitis, unspecified; R00.0 Tachycardia, unspecified; Z3A.34 34 weeks gestation of pregnancy; Z87.891 Personal history of nicotine dependence
CPT/HCPCS: 93005; 96376; 94640; 99291; 99292; 96375; 96365; 96367; 96368; 36415; 87040; 85025; 80048; 84484; 82803; 87804; 83880; 71045; 93010; 94660; J3490 ×2; J2930; J2060; J3475; J0696; J3480; J7120; J0456; J7620

== ENCOUNTER 2019-01-05 21:47 | Emergency (ER) | payer MEDICAID ==
--- NOTE | 2019-01-06 00:51 | ER Document Report ---
ED General - General Chief Complaint: Headache Stated Complaint: HEADACHE Time Seen by Provider: 01/06/19 00:39 Notes: Patient is a 28-year-old female that comes to the emergency department for chief complaint of headaches and elevated blood pressures since her at the end of last month (31 days ago). She is following with Dr. Miranda, states she was started on nifedipine 30 mg extended release twice daily, states she still is having high blood pressure and headaches. She was also given Fioricet for headaches but states it does not help. She is also on amoxicillin currently for a dental infection. She denies fevers, vomiting, headaches are mainly at the back of her head and top of the head and intermittent. TRAVEL OUTSIDE OF THE [place] IN LAST 30 DAYS: No - Related Data Allergies/Adverse Reactions: No Known Allergies Allergy (Verified 09/13/16 07:46) Past Medical History - General Information source: Patient - Social History Smoking Status: Current Every Day Smoker Chew tobacco use (# tins/day): No Frequency of alcohol use: None Drug Abuse: None Lives with: Family Family History: Reviewed & Not Pertinent Patient has suicidal ideation: No Patient has homicidal ideation: No - Past Medical History Cardiac Medical History: Reports: Hx Hypertension Renal/ Medical History: Denies: Hx Peritoneal Dialysis Infectious Medical History: Reports: Hx C-Diff Past Surgical History: Reports: Hx Section, Hx Cholecystectomy - Immunizations Immunizations up to date: Yes Hx Diphtheria, Pertussis, Tetanus Vaccination: Yes Review of Systems - Review of Systems Constitutional: See HPI EENT: No symptoms reported Cardiovascular: No symptoms reported Respiratory: No symptoms reported Gastrointestinal: No symptoms reported Genitourinary: No symptoms reported Female Genitourinary: No symptoms reported Musculoskeletal: No symptoms reported Skin: No symptoms reported Hematologic/Lymphatic: No symptoms reported Neurological/Psychological: See HPI Physical Exam - Vital signs Vitals: Temp Pulse Resp BP Pulse Ox 98.3 F 92 18 155/132 H 100 01/05/19 21:54 01/05/19 21:54 01/05/19 21:54 01/05/19 21:54 01/05/19 21:54 - Notes Notes: GENERAL: Alert, interacts well. No acute distress. HEAD: Normocephalic, atraumatic. EYES: Pupils equal, round, and reactive to light. Extraocular movements intact. ENT: Oral mucosa moist, tongue midline. Oropharynx unremarkable. Airway patent. Nares patent, no nasal septal hematoma, TM's intact. NECK: Full range of motion. Supple. Trachea midline. LUNGS: Clear to auscultation bilaterally, no wheezes, rales, or rhonchi. No respiratory distress. HEART: Regular rate and rhythm. No murmur ABDOMEN: Soft, non-tender. Non-distended. Bowel sounds present in all 4 quadrants. Healed wounds over the lower abdomen consistent with scars, no signs of erythema, tenderness, induration, fluctuance or other ab normality noted. GENITOURINARY: Deferred EXTREMITIES: Moves all 4 extremities spontaneously. No edema, normal radial and dorsalis pedis pulses bilaterally. No cyanosis. BACK: no cervical, thoracic, lumbar midline tenderness. No saddle anesthesia, normal distal neurovascular exam. NEUROLOGICAL: Alert and oriented x3. Normal speech. [cranial nerves II through XII grossly intact]. PSYCH: Normal affect, normal mood. SKIN: Warm, dry, normal turgor. No rashes or lesions noted. Course - Re-evaluation Re-evalutation: Patient initially hypertensive, however on repeat evaluation blood pressure much improved. She was treated with Reglan for her headache. Patient is not hyperreflexive, has no lower extremity edema, does not report any neurological symptoms other than headache. She is actually very well-appearing although she is somewhat anxious and talkative. CBC unremarkable, chemistry unremarkable with no thrombocytopenia, with no significant LFT elevation, urine unremarkable with no protein. I called and spoke with Dr. Miranda. Updated her on the patient's statements, evaluation, laboratory workup, exam, and blood pressure improvement. Blood pressure is now in the 130s systolic. No additional recommendations at this time, patient has a close 2-day follow-up in the office with Dr. Miranda already established, she already has referral for internal medicine/nephrology and neurology. Patient is to be given strict return precautions which I discussed. Patient states understanding and agreement with plan. Stable at time of discharge. - Vital Signs Vital signs: Temp Pulse Resp BP Pulse Ox 98.1 F 81 16 130/85 H 100 01/06/19 03:54 01/06/19 03:54 01/06/19 03:54 01/06/19 03:54 01/06/19 01:18 - Laboratory Result Diagrams: 01/06/19 01:26 01/06/19 01:26 Laboratory results interpreted by me: 01/06/19 01/06/19 01:26 01:26 WBC 10.6 H Hgb 10.8 L Hct 33.0 L MCV 75 L MCH 24.6 L RDW 17.2 H Potassium 3.3 L Chloride 108 H AST 39 H Discharge - Discharge Clinical Impression: Frequent headaches Hypertension Qualifiers: Hypertension type: unspecified Qualified Code(s): I10 - Essential (primary) hypertension Condition: Stable Disposition: HOME, SELF-CARE Additional Instructions: Your laboratory workup is reassuring. Your evaluation is reassuring including repeat blood pressures. I spoke with Dr. Miranda, no additional interventions are required at this time, follow-up in the next 2 days for recheck of your blood pressure in the office. Also make sure that you keep your internal medicine referral for beginning the evaluation for polycystic kidney disease. Your kidney function test is normal today. In addition to this keep your neurology appointment and your dental appointment. Return if you worsen including severe headache, vomiting, fever, or any other concerning or worsening symptoms.
[2019-01-06 01:41] LABS: ABSOLUTE BASOPHILS # (AUTO) 0.1 10^3/uL (0.0-0.2); ABSOLUTE EOSINOPHILS # (AUTO) 0.3 10^3/uL (0.0-0.6); ABSOLUTE LYMPHOCYTES (AUTO) 3.8 10^3/uL (0.5-4.7); ABSOLUTE MONOCYTES (AUTO) 0.5 10^3/uL (0.1-1.4); ABSOLUTE NEUT (AUTO) 5.9 10^3/uL (1.7-8.2); BASOPHILS % (AUTO) 0.9 % (0-2); EOSINOPHILS % (AUTO) 2.8 % (0-6); HEMOGLOBIN 10.8 g/dL (12.0-15.5); LYMPHOCYTES % (AUTO) 35.7 % (13-45); MEAN CORPUSCULAR HEMOGLOBIN 24.6 pg (27.0-33.4); MEAN CORPUSCULAR HGB CONC 32.7 g/dL (32.0-36.0); MEAN CORPUSCULAR VOLUME 75 fl (80-97); MONOCYTES % (AUTO) 4.9 % (3-13); PLATELET COUNT 394 10^3/uL (150-450); RED BLOOD COUNT 4.39 10^6/uL (3.72-5.28); RED CELL DISTRIBUTION WIDTH 17.2 % (11.5-14.0); SEGMENTED NEUTROPHILS % (AUTO) 55.7 % (42-78); TOTAL CELLS COUNTED % (AUTO) 100 %; WHITE BLOOD COUNT 10.6 10^3/uL (4.0-10.5)
[2019-01-06 02:01] LABS: ALANINE AMINOTRANSFERASE 10 U/L (9-52); ALBUMIN 4.8 g/dL (3.5-5.0); ALKALINE PHOSPHATASE 120 U/L (38-126); ANION GAP 10 (5-19); APPEARANCE,URINE CLEAR; ASPARTATE AMINO TRANSFERASE 39 U/L (14-36); BILIRUBIN,DIRECT 0.3 mg/dL (0.0-0.4); BILIRUBIN,TOTAL 0.3 mg/dL (0.2-1.3); BILIRUBIN,URINE NEGATIVE (NEGATIVE); BLOOD UREA NITROGEN 8 mg/dL (7-20); CALCIUM 9.8 mg/dL (8.4-10.2); CARBON DIOXIDE 24 mmol/L (22-30); CHLORIDE 108 mmol/L (98-107); COLOR,URINE COLORLESS; GLUCOSE 80 mg/dL (75-110); GLUCOSE, URINE NEGATIVE (NEGATIVE); KETONES,URINE NEGATIVE (NEGATIVE); LEUKOCYTE ESTERASE,URINE NEGATIVE (NEGATIVE); NITRITE,URINE NEGATIVE (NEGATIVE); POTASSIUM 3.3 mmol/L (3.6-5.0); PROTEIN,URINE NEGATIVE (NEGATIVE); SODIUM 142.2 mmol/L (137-145); TOTAL PROTEIN 8.2 g/dL (6.3-8.2); URINE SPECIFIC GRAVITY 1.003; UROBILINOGEN,URINE NEGATIVE mg/dL (<2.0)
[2019-01-06] MEDS ORDERED: METOCLOPRAMIDE HCL INJ/PF 10 MG/2 ML SDV IV ONE (02:03)
[2019-01-06] MEDS ORDERED: HYDROCODONE/ACETAMINOPHEN 5-325 MG (6 TAB/ER DISP) PO PRN (03:19)
[2019-01-06 03:55] VITALS: BP 130/85
== END 2019-01-06 03:55 | disposition home or self-care (01) ==
LOC: ER 21:47
DX: R51 Headache (principal); R03.0 Elevated blood-pressure reading, without diagnosis of hypertension; I10 Essential (primary) hypertension; F17.200 Nicotine dependence, unspecified, uncomplicated; Z90.49 Acquired absence of other specified parts of digestive tract
CPT/HCPCS: 99284; 96374; 36415; 85025; 80053; 81001; J2765

== ENCOUNTER 2019-01-09 22:26 | Emergency (ER) | payer MEDICAID ==
[2019-01-09] MEDS ORDERED: KETOROLAC TROMETHAMINE 60 MG/2 ML SDV IM ONE (23:24)
[2019-01-09] MEDS ORDERED: CLINDAMYCIN HCL 150 MG CAPSULE PO ONE (23:24)
--- NOTE | 2019-01-09 23:56 | RADIOLOGY REPORT (SQ) ---
EXAM DESCRIPTION: XR FINGERS COMPLETED DATE/TME: 01/09/2019 23:24 CLINICAL HISTORY: 28 years Female, thumb injury COMPARISON: None. Findings: Bones, joints, and soft tissues of the LEFT XR FINGERS 4 VIEWS appear intact. IMPRESSION: No acute findings.
--- NOTE | 2019-01-09 23:59 | ER Document Report ---
ED General - General Chief Complaint: Toothache Stated Complaint: TOOTH PAIN Time Seen by Provider: 01/09/19 22:52 Primary Care Provider: BENEDICT LEMUS MD [Primary Care Provider] - Follow up as needed Notes: Patient is a 28-year-old female without chronic medical problems who presents with 2 distinct complaints. Her first complaint is of dental pain. Patient reports for the past several days she has had a throbbing, severe, constant pain to her right sided lower front teeth secondary to dental caries. States she saw her dentist, was started on amoxicillin told that she would have to follow-up for tooth removal after antibiotic has been completed. She states over the pain has been so severe that she came to the emergency department for tonight for assessment. She has been trying ibuprofen without any relief. Eating or drinking worsens the pain. Denies previous similar pains in the past. Denies any difficulty breathing or swallowing. The patient also complains of an injury to her left thumb which occurred in the parking lot. Patient states that she closed her car door on the thumb. Describes this area as being moderately swollen, bruised with a throbbing, aching, constant pain worsened by use of the thumb. Nothing improves the pain. She is right-hand dominant. TRAVEL OUTSIDE OF THE [place] IN LAST 30 DAYS: No - Related Data Allergies/Adverse Reactions: No Known Allergies Allergy (Verified 01/09/19 22:30) Past Medical History - General Information source: Patient - Social History Smoking Status: Former Smoker Frequency of alcohol use: None Drug Abuse: None Lives with: Family Family History: Reviewed & Not Pertinent - Past Medical History Cardiac Medical History: Reports: Hx Hypertension Denies: Hx Atrial Fibrillation, Hx Congestive Heart Failure, Hx Heart Attack, Hx Hypercholesterolemia Pulmonary Medical History: Reports: Hx Pneumonia Denies: Hx Asthma, Hx Bronchitis, Hx COPD, Hx Tuberculosis Neurological Medical History: Denies: Hx Migraine, Hx Seizures Endocrine Medical History: Denies: Hx Diabetes Mellitus Type 1, Hx Diabetes Mellitus Type 2 Renal/ Medical History: Denies: Hx End Stage Renal Disease, Hx Kidney Stones, Hx Peritoneal Dialysis GI Medical History: Denies: Hx Gastroesophageal Reflux Disease, Hx Hiatal Hernia, Hx Ulcer Musculoskeletal Medical History: Denies Hx Arthritis Psychiatric Medical History: Denies: Hx Attention Deficit Hyperactivity Disorder, Hx Bipolar Disorder, Hx Depression, Hx Schizophrenia Infectious Medical History: Reports: Hx C-Diff Past Surgical History: Reports: Hx Section, Hx Cholecystectomy - Immunizations Immunizations up to date: Yes Hx Diphtheria, Pertussis, Tetanus Vaccination: Yes Review of Systems - Review of Systems Notes: Constitutional: Negative for fever. HENT: Positive for dental pain Eyes: Negative for visual changes. Cardiovascular: Negative for chest pain. Respiratory: Negative for shortness of breath. Gastrointestinal: Negative for abdominal pain, vomiting or diarrhea. Genitourinary: Negative for dysuria. Musculoskeletal: Positive for left thumb injury Skin: Negative for rash. Neurological: Negative for headaches, weakness or numbness. 10 point ROS negative except as marked above and in HPI. Physical Exam - Vital signs Vitals: Temp Pulse Resp BP Pulse Ox 99.1 F 84 20 146/95 H 98 01/09/19 22:37 01/09/19 22:37 01/09/19 22:37 01/09/19 22:37 01/09/19 22:37 Interpretation: Hypertensive Notes: PHYSICAL EXAMINATION: GENERAL: Well-appearing, well-nourished and in no acute distress. HEAD: Atraumatic, normocephalic. EYES: sclera anicteric, conjunctiva are normal. ENT: Moist mucous membranes. Diffuse poor dentition, diffuse dental caries on remaining teeth. NECK: Normal range of motion LUNGS: Normal work of breathing HEART: 2+ radial pulses bilaterally EXTREMITIES: no pitting or edema. No cyanosis. Mild swelling and bruising over the dorsum of the left great thumb. Full flexion extension at the MCP and PIP of the left thumb against resistance. NEUROLOGICAL: No focal neurological deficits. Moves all extremities spontaneously and on command. PSYCH: Normal mood, normal affect. SKIN: Warm, Dry, normal turgor, no rashes or lesions noted. Course - Re-evaluation Re-evalutation: 01/09/19 23:58 Presentation is most consistent with likely an infected tooth. Airway is patent. Vitals within normal limits. Patient is able swallow without any difficulty. There is no significant facial swelling. No evidence of Elliot angina, apical abscess, or airway obstruction. Patient will be started on antibiotics. I've instructed to follow-up with dentistry as earliest ability for definitive management. Patient did also complain of an injury to her left thumb stating that she closed her door of her car on the thumb shortly after getting here to the emergency department. Moderate bruising along the dorsal surface of the thumb is noted. X-rays without any evidence of fracture. At t his time will discharge with return precautions and follow-up recommendations. Verbal discharge instructions given a the bedside and opportunity for questions given. Medication warnings reviewed. Patient is in agreement with this plan and has verbalized understanding of return precautions and the need for primary care follow-up in the next 24-72 hours. - Vital Signs Vital signs: Temp Pulse Resp BP Pulse Ox 98.4 F 76 15 140/90 H 100 01/10/19 00:36 01/10/19 00:36 01/10/19 00:36 01/10/19 00:36 01/10/19 00:36 - Diagnostic Test Radiology reviewed: Image reviewed, Reports reviewed Radiology results interpreted by me: 01/09/19 23:59 Left thumb x-ray: No acute fracture or dislocation Discharge - Discharge Clinical Impression: Dental caries, Injury of left thumb Condition: Good Disposition: HOME, SELF-CARE Additional Instructions: You have been seen for dental pain. It is very important that you follow-up with a dentist for definitive care. Please return if you develop fever greater than 101, swelling in your face, vomiting, difficulty breathing or swallowing, or any other symptoms that are concerning to you. For your pain: Take ibuprofen 600 mg and acetaminophen 1000 mg every 6 hours together as needed for pain. The x-ray of your thumb does not show any fractures. Apply ice to the area 20 minutes every 2 hours while awake. Prescriptions: Clindamycin HCl 300 mg PO TID #30 capsule Referrals: BENEDICT LEMUS MD [Primary Care Provider] - Follow up as needed
[2019-01-10] MEDS ORDERED: MORPHINE SULFATE IR 15 MG TABLET PO ONE (00:02)
[2019-01-10 00:39] VITALS: BP 140/90
== END 2019-01-10 00:39 | disposition home or self-care (01) ==
LOC: ER 22:26
DX: K02.9 Dental caries, unspecified (principal); K08.89 Other specified disorders of teeth and supporting structures; S60.012A Contusion of left thumb without damage to nail, initial encounter; W23.0XXA Caught, crushed, jammed, or pinched between moving objects, initial encounter; Y92.481 Parking lot as the place of occurrence of the external cause; I10 Essential (primary) hypertension; Z87.891 Personal history of nicotine dependence
CPT/HCPCS: 99283; 96372; 73140; J3490; J1885

== ENCOUNTER 2019-04-01 08:18 | Emergency (ER) | payer SELFPAY ==
[2019-04-01 09:37] LABS: APPEARANCE,URINE CLEAR; BILIRUBIN,URINE NEGATIVE (NEGATIVE); COLOR,URINE STRAW; GLUCOSE, URINE NEGATIVE (NEGATIVE); KETONES,URINE NEGATIVE (NEGATIVE); LEUKOCYTE ESTERASE,URINE NEGATIVE (NEGATIVE); NITRITE,URINE NEGATIVE (NEGATIVE); PROTEIN,URINE NEGATIVE (NEGATIVE); URINE SPECIFIC GRAVITY 1.005; UROBILINOGEN,URINE NEGATIVE mg/dL (<2.0)
[2019-04-01 09:39] LABS: ABSOLUTE BASOPHILS # (AUTO) 0.1 10^3/uL (0.0-0.2); ABSOLUTE EOSINOPHILS # (AUTO) 0.3 10^3/uL (0.0-0.6); ABSOLUTE LYMPHOCYTES (AUTO) 2.3 10^3/uL (0.5-4.7); ABSOLUTE MONOCYTES (AUTO) 0.5 10^3/uL (0.1-1.4); ABSOLUTE NEUT (AUTO) 7.3 10^3/uL (1.7-8.2); EOSINOPHILS % (AUTO) 2.7 % (0-6); HEMATOCRIT 37.2 % (36.0-47.0); HEMOGLOBIN 12.2 g/dL (12.0-15.5); MEAN CORPUSCULAR HEMOGLOBIN 24.9 pg (27.0-33.4); MEAN CORPUSCULAR HGB CONC 32.8 g/dL (32.0-36.0); MEAN CORPUSCULAR VOLUME 76 fl (80-97); MONOCYTES % (AUTO) 4.9 % (3-13); PLATELET COUNT 353 10^3/uL (150-450); RED CELL DISTRIBUTION WIDTH 19.7 % (11.5-14.0); SEGMENTED NEUTROPHILS % (AUTO) 69.4 % (42-78); TOTAL CELLS COUNTED % (AUTO) 100 %; WHITE BLOOD COUNT 10.5 10^3/uL (4.0-10.5)
[2019-04-01 09:51] LABS: ALANINE AMINOTRANSFERASE 143 U/L (9-52); ALBUMIN 4.7 g/dL (3.5-5.0); ALKALINE PHOSPHATASE 117 U/L (38-126); ANION GAP 11 (5-19); ASPARTATE AMINO TRANSFERASE 78 U/L (14-36); BILIRUBIN,DIRECT 0.2 mg/dL (0.0-0.4); BILIRUBIN,TOTAL 0.3 mg/dL (0.2-1.3); BLOOD UREA NITROGEN 9 mg/dL (7-20); CALCIUM 10.2 mg/dL (8.4-10.2); CARBON DIOXIDE 23 mmol/L (22-30); CHLORIDE 109 mmol/L (98-107); GLUCOSE 101 mg/dL (75-110); LIPASE 58.7 U/L (23-300); POTASSIUM 4.4 mmol/L (3.6-5.0); TOTAL PROTEIN 8.3 g/dL (6.3-8.2)
--- NOTE | 2019-04-01 10:16 | ER Document Report ---
ED General - General Chief Complaint: Abdominal Pain Stated Complaint: ABDOMINAL PAIN Time Seen by Provider: 04/01/19 08:52 Mode of Arrival: Ambulatory Information source: Patient Notes: Patient presents emergency department with complaints of abdominal cramping feels like her insides are falling out for the past three days. Patient reports she is 3 months . G3, P3. Patient reports she recently got placed on Nexplanon for control. Patient reports her first menses since having her baby by csection 3 months ago started and she is having heavy bleeding reports a tampon every 2 hours. She reports she has noted larger clots than usual with this menses. Patient is not breast-feeding. She denies other symptoms such as fever vomiting diarrhea. Reports she has been taking Motrin for the pain but is not helping relieve it. TRAVEL OUTSIDE OF THE [place] IN LAST 30 DAYS: No - HPI Onset: Other Onset/Duration: Persistent Quality of pain: Cramping Severity: Moderate Pain Level: 4 Associated symptoms: None Exacerbated by: Denies Relieved by: Denies Similar symptoms previously: No Recently seen / treated by doctor: No - Related Data Allergies/Adverse Reactions: No Known Allergies Allergy (Verified 01/09/19 22:30) Past Medical History - General Information source: Patient Last Menstrual Period: current - Social History Smoking Status: Current Every Day Smoker Chew tobacco use (# tins/day): No Frequency of alcohol use: None Drug Abuse: None Lives with: Family Family History: Reviewed & Not Pertinent Patient has suicidal ideation: No Patient has homicidal ideation: No - Past Medical History Cardiac Medical History: Reports: Hx Hypertension Denies: Hx Atrial Fibrillation, Hx Congestive Heart Failure, Hx Heart Attack, Hx Hypercholesterolemia Pulmonary Medical History: Reports: Hx Pneumonia Denies: Hx Asthma, Hx Bronchitis, Hx COPD, Hx Tuberculosis Neurological Medical History: Denies: Hx Migraine, Hx Seizures Endocrine Medical History: Denies: Hx Diabetes Mellitus Type 1, Hx Diabetes Mellitus Type 2 Renal/ Medical History: Denies: Hx End Stage Renal Disease, Hx Kidney Stones, Hx Peritoneal Dialysis GI Medical History: Denies: Hx Gastroesophageal Reflux Disease, Hx Hiatal Hernia, Hx Ulcer Musculoskeletal Medical History: Denies Hx Arthritis Psychiatric Medical History: Denies: Hx Attention Deficit Hyperactivity Disorder, Hx Bipolar Disorder, Hx Depression, Hx Schizophrenia Infectious Medical History: Reports: Hx C-Diff Past Surgical History: Reports: Hx Section, Hx Cholecystectomy - Immunizations Immunizations up to date: Yes Hx Diphtheria, Pertussis, Tetanus Vaccination: Yes Review of Systems - Review of Systems Notes: Review HPI for review of systems., All other systems negative Physical Exam - Vital signs Vitals: Temp Pulse Resp BP Pulse Ox 98.1 F 82 16 152/96 H 98 04/01/19 08:24 04/01/19 08:24 04/01/19 08:24 04/01/19 08:24 04/01/19 08:24 - General General appearance: Appears well, Alert In distress: None - HEENT Head: Normocephalic, Atraumatic Eyes: Normal Conjunctiva: Normal Mucous membranes: Moist Neck: Normal, Supple. No: Lymphadenopathy - Respiratory Respiratory status: No respiratory distress Chest status: Nontender Breath sounds: Normal Chest palpation: Normal - Cardiovascular Rhythm: Regular Heart sounds: Normal auscultation Murmur: No - Abdominal Inspection: Normal Distension: No distension Bowel sounds: Normal Tenderness: Nontender - no c/o pain with palpation - Back Back: Normal, Nontender - Extremities General upper extremity: Normal ROM General lower extremity: Normal ROM - Neurological Neuro grossly intact: Yes Cognition: Normal Orientation: AAOx4 [place] Coma Scale Eye Opening: Spontaneous Bennie Coma Scale Verbal: Oriented [place] Coma Scale Motor: Obeys Commands Bennie Coma Scale Total: 15 Speech: Normal - Psychological Associated symptoms: Normal affect, Normal mood - Skin Skin Temperature: Warm Skin Moisture: Dry Skin Color: Normal Course - Re-evaluation Re-evalutation: 04/01/19 10:22 Labs unremarkable. Patient reports this is her first menses since she had a baby 3 months ago. 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 She verbalized understanding The patient presents with abdominal pain without signs of peritonitis or other life threatening or serious etiology. The patient appears stable for discharge and has been instructed to return immediately if the symptoms worsen in any way or in 8-12 hours if not improved for reevaluation. The patient has been inst ructed to return if the symptoms worsen or change in any way. Dictation of this chart was performed using voice recognition software; therefore, there may be some unintended grammatical errors. - Vital Signs Vital signs: Temp Pulse Resp BP Pulse Ox 98.1 F 82 16 152/96 H 98 04/01/19 08:24 04/01/19 08:24 04/01/19 08:24 04/01/19 08:24 04/01/19 08:24 - Laboratory Result Diagrams: 04/01/19 09:14 04/01/19 09:14 Laboratory results interpreted by me: 04/01/19 04/01/19 09:14 09:14 MCV 76 L MCH 24.9 L RDW 19.7 H Chloride 109 H AST 78 H ALT 143 H Total Protein 8.3 H Discharge - Discharge Clinical Impression: Abdominal cramps Condition: Stable Disposition: HOME, SELF-CARE Instructions: Use of Jpux-Dhu-Rrsyait Ibuprofen ([facility]), [facility] [place], Vaginal Bleeding ([facility]), [facility] ([facility]) Additional Instructions: *You have been evaluated for abdominal cramps, vaginal bleeding *Take ibuprofen as indicated *Follow up with a primary care provider or STILL PUMP OPERATOR within one week for recheck or continuing symptoms *Return to ED for worsening condition, changes, needs *Return to ED if not better in 24 hours Monitor your blood pressure. Your blood pressure was elevated today. This may be because you were anxious, in pain or because you need medication. It is important to follow up with your primary care provider for full evaluation. Forms: Elevated Blood Pressure
[2019-04-01 10:39] VITALS: BP 120/79
== END 2019-04-01 10:49 | disposition home or self-care (01) ==
LOC: ER 08:18
DX: R10.9 Unspecified abdominal pain (principal); F17.200 Nicotine dependence, unspecified, uncomplicated; I10 Essential (primary) hypertension
CPT/HCPCS: 36415; 80053; 81001; 81025; 83690; 85025; 99284

== ENCOUNTER 2019-10-01 08:10 | Emergency (ER) | payer SELFPAY ==
[2019-10-01] MEDS ORDERED: DEXAMETHASONE CONC 1 MG/ML SOLN PO ONE (09:05)
[2019-10-01] MEDS ORDERED: KETOROLAC TROMETHAMINE 60 MG/2 ML SDV IM ONE (09:05)
--- NOTE | 2019-10-01 09:05 | ER Document Report ---
HPI - HPI Patient complains to provider of: sore throat Time Seen by Provider: 10/01/19 08:29 Pain Level: 4 Notes: 28-year-old female to the emergency department with complaints of sore throat, cough, body aches, low-grade fever that began about 2 days ago. She states that 1 of her children was diagnosed with the flu earlier in the week and she is been giving her Tamiflu. She states she did not have a flu shot this season. She states that she is tried [id number] medicines to relieve her symptoms but not have worked. She denies any chest pain or shortness of breath. - CONSTITUTIONAL Constitutional: REPORTS: Fever, Chills - EENT EENT: REPORTS: Sore Throat - REPRODUCTIVE Reproductive: DENIES: : Past Medical History - General Information source: Patient - Social History Smoking Status: Current Every Day Smoker Frequency of alcohol use: None Drug Abuse: None Family History: Reviewed & Not Pertinent Patient has suicidal ideation: No Patient has homicidal ideation: No - Past Medical History Cardiac Medical History: Reports: Hx Hypertension Denies: Hx Atrial Fibrillation, Hx Congestive Heart Failure, Hx Heart Attack, Hx Hypercholesterolemia Pulmonary Medical History: Reports: Hx Pneumonia Denies: Hx Asthma, Hx Bronchitis, Hx COPD, Hx Tuberculosis Neurological Medical History: Denies: Hx Migraine, Hx Seizures Endocrine Medical History: Denies: Hx Diabetes Mellitus Type 1, Hx Diabetes Mellitus Type 2 Renal/ Medical History: Denies: Hx End Stage Renal Disease, Hx Kidney Stones, Hx Peritoneal Dialysis GI Medical History: Denies: Hx Gastroesophageal Reflux Disease, Hx Hiatal Hernia, Hx Ulcer Musculoskeletal Medical History: Denies Hx Arthritis Psychiatric Medical History: Denies: Hx Attention Deficit Hyperactivity Disorder, Hx Bipolar Disorder, Hx Depression, Hx Schizophrenia Infectious Medical History: Reports: Hx C-Diff Past Surgical History: Reports: Hx Section, Hx Cholecystectomy - Immunizations Immunizations up to date: Yes Hx Diphtheria, Pertussis, Tetanus Vaccination: Yes Vertical Provider Document - CONSTITUTIONAL General Appearance: WD/WN, No Apparent Distress Notes: Patient appears like she does not feel well but she is nontoxic in appearance. She is in no distress. - INFECTION CONTROL TRAVEL OUTSIDE OF THE [place] IN LAST 30 DAYS: No - HEENT HEENT: Atraumatic, PERRLA, Pharyngeal Exudate, Pharyngeal Erythema. negative: Tympanic Membrane Red, Tympanic Membrane Bulging Notes: There is noted bilateral hypertrophic tonsils with no evidence of peritonsillar abscess. Uvula is midline. There is noted exudates. Patient has no voice change. She is not drooling. Airway is grossly patent. no evidence for Elliot's angina. no trismus. - NECK Neck: Normal Inspection, Supple. negative: Lymphadenopathy-Left, Lymphadenopathy-Right - RESPIRATORY Respiratory: Breath Sounds Normal. negative: Rales, Rhonchi, Wheezing - CARDIOVASCULAR Cardiovascular: Regular Rate, Regular Rhythm, No Murmur - GI/ABDOMEN Gastrointestinal: Abdomen Soft, Abdomen Non-Tender. negative: Abdominal Guarding, Abdominal Rebound, Abdominal Mass - BACK Back: Normal Inspection. negative: CVA Tenderness-Right, CVA Tenderness-Left - NEURO Level of Consciousness: Awake, Alert, Appropriate Motor/Sensory: No Motor Deficit, No Sensory Deficit, No Pronator Drift - DERM Integumentary: Warm, Dry, No Rash Course - Re-evaluation Re-evalutation: 10/01/19 10:17 Laboratory 10/01/19 10/01/19 08:14 09:13 Influenza A (Rapid) NEGATIVE Influenza B (Rapid) NEGATIVE Group A Strep Rapid NEGATIVE Impression: Flulike symptoms, exudative pharyngitis, cough. Patient is negative for flu a and B and also for rapid strep. We will go ahead and treat for her symptoms. Did give Toradol and Decadron here in the emergency department. We will send home with Motrin 800 as well as Tessalon Perles and Chloraseptic [place]. I have encouraged patient to rest and to push fluids. Have encouraged her to return if she has any worsening symptoms such as chest pain, shortness of breath or any other concerns. - Vital Signs Vital signs: Temp Pulse Resp BP Pulse Ox 99.5 F 112 H 18 133/75 H 99 10/01/19 08:16 10/01/19 08:16 10/01/19 08:16 10/01/19 08:16 10/01/19 08:16 Discharge - Discharge Clinical Impression: Flu-like symptoms, Sore throat, Cough, Generalized body aches Condition: Stable Disposition: HOME, SELF-CARE Instructions: Cough Suppressant & Expectorant Medications, Sore Throat ([facility]) Additional Instructions: PUSH FLUIDS. REST. RETURN IF WORSENING SYMPTOMS SUCH CHEST PAIN, SHORTNESS OF BREATH, INTRACTABLE VOMITING, OR ANY OTHER CONCERNS. Prescriptions: Ondansetron [Zofran Odt 4 mg Tablet] 1 - 2 tab PO Q4HP PRN #10 tab.rapdis PRN Reason: Benzonatate [Tessalon [place] 100 mg Capsule] 100 mg PO Q8HP PRN #40 cap PRN Reason: Phenol/Glycerin [Chloraseptic Max [place]] 30 ml MM TID #1 bottle Ibuprofen [Motrin 800 mg Tablet] 800 mg PO Q8H PRN #30 tab PRN Reason: Forms: Return to Work Referrals: [facility] [Provider Group] - Follow up in 1 week
[2019-10-01 09:51] LABS: A TYPE INFLUENZA AG NEGATIVE (NEGATIVE); B INFLUENZA AG NEGATIVE (NEGATIVE)
[2019-10-01 10:31] VITALS: BP 120/65
== END 2019-10-01 10:34 | disposition home or self-care (01) ==
LOC: ER 08:10
DX: J02.9 Acute pharyngitis, unspecified (principal); R05 Cough; R50.9 Fever, unspecified; J35.1 Hypertrophy of tonsils; F17.200 Nicotine dependence, unspecified, uncomplicated; I10 Essential (primary) hypertension; Z20.828 Contact with and (suspected) exposure to other viral communicable diseases; Z87.01 Personal history of pneumonia (recurrent)
CPT/HCPCS: 99283; 96372; 87070; 87880; 87804; J1885; J8540

== ENCOUNTER 2019-11-28 10:23 | Emergency (ER) | payer SELFPAY ==
[2019-11-28 10:38] VITALS: BP 103/62
[2019-11-28] MEDS ORDERED: ASPIRIN 81 MG TABLET, CHEWABLE PO ONE (10:43)
[2019-11-28] MEDS ORDERED: IPRATROPIUM/ALBUTEROL 0.5-2.5 MG/3 ML AMPUL NEB ONE (10:44)
--- NOTE | 2019-11-28 10:45 | ER Document Report ---
ED Medical Screen (RME) - General Chief Complaint: Breathing Difficulty Stated Complaint: CHEST TIGHTNESS Time Seen by Provider: 11/28/19 10:37 Mode of Arrival: Ambulatory Information source: Patient Notes: Patient presents with a one-week history of cough. Patient reports difficulty breathing and chest tightness that started this morning. Patient reports vomiting yesterday. No fever. 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 Patient denies any history of asthma or COPD. Patient is a smoker. I have greeted and performed a rapid initial assessment of this patient. A comprehensive ED assessment and evaluation of the patient, analysis of test results and completion of the medical decision making process will be conducted by additional ED providers. TRAVEL OUTSIDE OF THE [place] IN LAST 30 DAYS: No - Related Data Allergies/Adverse Reactions: No Known Allergies Allergy (Verified 11/28/19 10:37) Past Medical History - Past Medical History Cardiac Medical History: Reports: Hx Hypertension Denies: Hx Atrial Fibrillation, Hx Congestive Heart Failure, Hx Heart Attack, Hx Hypercholesterolemia Pulmonary Medical History: Reports: Hx Pneumonia Denies: Hx Asthma, Hx Bronchitis, Hx COPD, Hx Tuberculosis Neurological Medical History: Denies: Hx Migraine, Hx Seizures Endocrine Medical History: Denies: Hx Diabetes Mellitus Type 1, Hx Diabetes Mellitus Type 2 Renal/ Medical History: Denies: Hx End Stage Renal Disease, Hx Kidney Stones, Hx Peritoneal Dialysis GI Medical History: Denies: Hx Gastroesophageal Reflux Disease, Hx Hiatal Hernia, Hx Ulcer Musculoskeltal Medical History: Denies Hx Arthritis Psychiatric Medical History: Denies: Hx Attention Deficit Hyperactivity Disorder, Hx Bipolar Disorder, Hx Depression, Hx Schizophrenia Infectious Medical History: Reports: Hx C-Diff Past Surgical History: Reports: Hx Section, Hx Cholecystectomy - Immunizations Immunizations up to date: Yes Hx Diphtheria, Pertussis, Tetanus Vaccination: Yes Physical Exam - Vital signs Vitals: Temp Pulse Resp BP Pulse Ox 97.8 F 73 16 103/62 98 11/28/19 10:28 11/28/19 10:28 11/28/19 10:28 11/28/19 10:28 11/28/19 10:28 - Respiratory Respiratory status: No respiratory distress Chest status: Tender Breath sounds: Nonproductive cough Chest palpation: Normal Course - Vital Signs Vital signs: Temp Pulse Resp BP Pulse Ox 97.8 F 73 16 103/62 98 11/28/19 10:28 11/28/19 10:28 11/28/19 10:28 11/28/19 10:28 11/28/19 10:28
[2019-11-28 11:15] LABS: ABSOLUTE BASOPHILS # (AUTO) 0.1 10^3/uL (0.0-0.2); ABSOLUTE EOSINOPHILS # (AUTO) 0.2 10^3/uL (0.0-0.6); ABSOLUTE LYMPHOCYTES (AUTO) 2.6 10^3/uL (0.5-4.7); ABSOLUTE MONOCYTES (AUTO) 0.8 10^3/uL (0.1-1.4); ABSOLUTE NEUT (AUTO) 11.5 10^3/uL (1.7-8.2); BASOPHILS % (AUTO) 0.8 % (0-2); EOSINOPHILS % (AUTO) 1.6 % (0-6); HEMATOCRIT 38.8 % (36.0-47.0); LYMPHOCYTES % (AUTO) 17.3 % (13-45); MEAN CORPUSCULAR HEMOGLOBIN 27.2 pg (27.0-33.4); MEAN CORPUSCULAR HGB CONC 33.5 g/dL (32.0-36.0); MEAN CORPUSCULAR VOLUME 81 fl (80-97); PLATELET COUNT 291 10^3/uL (150-450); RED BLOOD COUNT 4.77 10^6/uL (3.72-5.28); RED CELL DISTRIBUTION WIDTH 15.6 % (11.5-14.0); SEGMENTED NEUTROPHILS % (AUTO) 75.3 % (42-78); TOTAL CELLS COUNTED % (AUTO) 100 %; WHITE BLOOD COUNT 15.3 10^3/uL (4.0-10.5)
[2019-11-28 11:26] LABS: ALBUMIN 4.1 g/dL (3.5-5.0); ALKALINE PHOSPHATASE 80 U/L (38-126); ANION GAP 10 (5-19); ASPARTATE AMINO TRANSFERASE 20 U/L (14-36); BILIRUBIN,DIRECT 0.2 mg/dL (0.0-0.4); BILIRUBIN,TOTAL 0.4 mg/dL (0.2-1.3); BLOOD UREA NITROGEN 5 mg/dL (7-20); CALCIUM 9.4 mg/dL (8.4-10.2); CARBON DIOXIDE 27 mmol/L (22-30); CHLORIDE 104 mmol/L (98-107); GLUCOSE 90 mg/dL (75-110); POTASSIUM 3.7 mmol/L (3.6-5.0); TOTAL PROTEIN 7.3 g/dL (6.3-8.2)
--- NOTE | 2019-11-28 11:55 | RADIOLOGY REPORT (SQ) ---
EXAM DESCRIPTION: CHEST 2 VIEWS COMPLETED DATE/TIME: 11/28/2019 11:04 am REASON FOR STUDY: cough, cp COMPARISON: None. TECHNIQUE: Frontal and lateral radiographic views of the chest acquired. NUMBER OF VIEWS: Two view. LIMITATIONS: None. FINDINGS: LUNGS AND PLEURA: No opacities, masses or pneumothorax. No pleural effusion. MEDIASTINUM AND HILAR STRUCTURES: No masses or contour abnormalities. HEART AND VASCULAR STRUCTURES: Heart normal size. No evidence for failure. BONES: No acute findings. HARDWARE: None in the chest. OTHER: No other significant finding. IMPRESSION: NO SIGNIFICANT RADIOGRAPHIC FINDING IN THE CHEST. TECHNICAL DOCUMENTATION: JOB ID: [id number] [employer]- All Rights Reserved Reading location - IP/workstation name: SMALL BATTERY PLATE [email or web address]
[2019-11-28 11:59] LABS: A TYPE INFLUENZA AG NEGATIVE (NEGATIVE); B INFLUENZA AG NEGATIVE (NEGATIVE)
[2019-11-28] MEDS ORDERED: PREDNISONE 20 MG TABLET PO ONE (12:21)
--- NOTE | 2019-11-28 17:45 | ER Document Report ---
Entered by RAVEN TIERNEY SCRIBE 11/28/19 1205 Acting as scribe for:JACOB FINE DO ED General - General Chief Complaint: Breathing Difficulty Stated Complaint: CHEST TIGHTNESS Time Seen by Provider: 11/28/19 10:37 Mode of Arrival: Ambulatory Notes: Patient with cough congestion and runny nose for about a week. Patient has a history of smoking but no asthma. Albuterol treatment ordered at triage. Patient has had chest tightness but no pain. Denies . No nausea or vomiting. No back pain. No dysuria. No other symptoms or concerns. TRAVEL OUTSIDE OF THE [place] IN LAST 30 DAYS: No - Related Data Allergies/Adverse Reactions: No Known Allergies Allergy (Verified 11/28/19 10:37) Past Medical History - General Information source: Patient - Social History Smoking Status: Current Every Day Smoker Family History: Reviewed & Not Pertinent Patient has suicidal ideation: No Patient has homicidal ideation: No - Past Medical History Cardiac Medical History: Reports: Hx Hypertension Denies: Hx Atrial Fibrillation, Hx Congestive Heart Failure, Hx Heart Attack, Hx Hypercholesterolemia Pulmonary Medical History: Reports: Hx Pneumonia Denies: Hx Asthma, Hx Bronchitis, Hx COPD, Hx Tuberculosis Neurological Medical History: Denies: Hx Migraine, Hx Seizures Endocrine Medical History: Denies: Hx Diabetes Mellitus Type 1, Hx Diabetes Mellitus Type 2 Renal/ Medical History: Denies: Hx End Stage Renal Disease, Hx Kidney Stones, Hx Peritoneal Dialysis GI Medical History: Denies: Hx Gastroesophageal Reflux Disease, Hx Hiatal Hernia, Hx Ulcer Musculoskeletal Medical History: Denies Hx Arthritis Psychiatric Medical History: Denies: Hx Attention Deficit Hyperactivity Disorder, Hx Bipolar Disorder, Hx Depression, Hx Schizophrenia Infectious Medical History: Reports: Hx C-Diff Past Surgical History: Reports: Hx Section, Hx Cholecystectomy - Immunizations Immunizations up to date: Yes Hx Diphtheria, Pertussis, Tetanus Vaccination: Yes Review of Systems - Review of Systems -: Yes All other systems reviewed and negative Physical Exam - Vital signs Vitals: Temp Pulse Resp BP Pulse Ox 97.8 F 73 16 103/62 98 11/28/19 10:28 11/28/19 10:28 11/28/19 10:28 11/28/19 10:28 11/28/19 10:28 Interpretation: Normal - General General appearance: Appears well, Alert - HEENT Head: Normocephalic, Atraumatic Eyes: Normal Pupils: PERRL - Respiratory Respiratory status: No respiratory distress Chest status: Nontender Breath sounds: Normal Chest palpation: Normal - Cardiovascular Rhythm: Regular Heart sounds: Normal auscultation Murmur: No - Abdominal Inspection: Normal Distension: No distension Bowel sounds: Normal Tenderness: Nontender Organomegaly: No organomegaly - Back Back: Normal, Nontender - Extremities General upper extremity: Normal inspection, Nontender, Normal color, Normal ROM, Normal temperature General lower extremity: Normal inspection, Nontender, Normal color, Normal ROM, Normal temperature, Normal weight bearing. No: Laureen's sign - Neurological Neuro grossly intact: Yes Cognition: Normal Orientation: AAOx4 [place] Coma Scale Eye Opening: Spontaneous [place] Coma Scale Verbal: Oriented [place] Coma Scale Motor: Obeys Commands Bennie Coma Scale Total: 15 Speech: Normal Motor strength normal: LUE, RUE, LLE, RLE Sensory: Normal - Psychological Associated symptoms: Normal affect, Normal mood - Skin Skin Temperature: Warm Skin Moisture: Dry Skin Color: Normal Course - Re-evaluation Re-evalutation: 11/28/19 12:22 Patient with recent upper respiratory infection and came in today with cough and some difficulty breathing with chest tightness. Received nebulizer treatment and symptoms have resolved. No further wheezing on exam. Chest x-ray clear. Blood work benign. Denies due to Nexplanon. Patient will be discharged with prescription for albuterol and prednisone. Saturation over 95% with ambulation in the room. No further cough or respiratory distress. Understands and agrees with plan. Follow-up with PMD. Return if any worsening or concerning symptoms. Stable for discharge. - Vital Signs Vital signs: Temp Pulse Resp BP Pulse Ox 97.8 F 73 16 103/62 98 11/28/19 10:28 11/28/19 10:28 11/28/19 10:28 11/28/19 10:28 11/28/19 10:28 - Laboratory Result Diagrams: 11/28/19 10:50 11/28/19 10:50 Laboratory results interpreted by me: 11/28/19 11/28/19 10:50 10:50 WBC 15.3 H RDW 15.6 H Absolute Neuts (auto) 11.5 H BUN 5 L - Diagnostic Test Radiology reviewed: Image reviewed, Reports reviewed - EKG Interpretation by Me EKG shows normal: Sinus rhythm Rate: Normal - 65, no acute changes Discharge - Discharge Clinical Impression: Bronchospasm with bronchitis, acute Condition: Stable Disposition: HOME, SELF-CARE Instructions: Bronchitis With Bronchospasm (Wheezing) ([facility]), Stop Smoking ([facility]) Prescriptions: Prednisone [Deltasone 20 mg Tablet] 2 tab PO DAILY 4 Days #8 tablet Ipratropium/Albuterol Sulfate [Duoneb 3 ml Ampul] 3 ml NEB RTQ4HP PRN #30 vial.neb PRN Reason: Albuterol Sulfate [Proair HFA Inhalation Aerosol 8.5 gm MDI] 2 puff IH Q4H PRN #1 mdi PRN Reason: Forms: Parent Work Note I personally performed the services described in the documentation, reviewed and edited the documentation which was dictated to the scribe in my presence, and it accurately records my words and actions.
--- NOTE | 2019-11-28 18:35 | EKG REPORT ---
SEVERITY:- NORMAL ECG - SINUS RHYTHM : Confirmed by: Allyn Corral MD 28-Nov-2019 18:34:24
== END 2019-11-28 12:23 | disposition home or self-care (01) ==
LOC: ER 10:23
DX: J20.9 Acute bronchitis, unspecified (principal); R05 Cough; R09.89 Other specified symptoms and signs involving the circulatory and respiratory systems; R07.89 Other chest pain; F17.200 Nicotine dependence, unspecified, uncomplicated; I10 Essential (primary) hypertension; Z87.01 Personal history of pneumonia (recurrent); Z97.5 Presence of (intrauterine) contraceptive device
CPT/HCPCS: 93005; 94640; 99284; 36415; 85025; 80053; 84484; 87804; 71046; 93010; J7620

== ENCOUNTER 2020-01-29 13:16 | Emergency (ER) | payer SELFPAY ==
[2020-01-29 13:22] VITALS: BP 115/75
--- NOTE | 2020-01-29 13:27 | ER Document Report ---
ED Skin Rash/Insect Bite/Abscs - General Chief Complaint: Rash Stated Complaint: RASH Time Seen by Provider: 01/29/20 13:22 Primary Care Provider: [facility] [Provider Group] - Follow up as needed [facility] [Provider Group] - Follow up as needed [facility] [Provider Group] - Follow up as needed [facility] [Provider Group] - Follow up as needed Mode of Arrival: Ambulatory Information source: Patient Notes: 29-year-old female presented to ED for rash to the abdomen back neck and now starting on the arms. She started on the left side of the chest. It does look like pityriasis. Patient has been given instructions concerning pityriasis treatment. TRAVEL OUTSIDE OF THE [place] IN LAST 30 DAYS: No - HPI Patient complains to provider of: Skin rash/lesion Onset: Other - Couple days Onset/Duration: Gradual Quality of pain: Other - Itching Severity: None Pain Level: Denies Skin Character: Rash Quality of rash: Itchy Identify cause: No Exacerbated by: Denies Relieved by: Denies Similar symptoms previously: Yes Recently seen / treated by doctor: No - Related Data Allergies/Adverse Reactions: No Known Allergies Allergy (Verified 11/28/19 10:37) Past Medical History - General Information source: Patient - Social History Smoking Status: Current Every Day Smoker - Pack per day Cigarette use (# per day): Yes Smoking Education Provided: Yes - 4 minutes Frequency of alcohol use: None Drug Abuse: None Occupation: [employer] Lives with: Family Family History: Reviewed & Not Pertinent Patient has suicidal ideation: No Patient has homicidal ideation: No - Past Medical History Cardiac Medical History: Reports: Hx Hypertension Pulmonary Medical History: Reports: Hx Pneumonia EENT Medical History: Reports: None Neurological Medical History: Reports: None Endocrine Medical History: Reports: None Renal/ Medical History: Reports: Other Malignancy Medical History: Reports: None GI Medical History: Reports: None Musculoskeletal Medical History: Reports None Skin Medical History: Reports None Psychiatric Medical History: Reports: Hx Anxiety, Hx Bipolar Disorder, Hx Dep ression, Hx Post Traumatic Stress Disorder Traumatic Medical History: Reports: None Infectious Medical History: Reports: Hx C-Diff Past Surgical History: Reports: Hx Section, Hx Cholecystectomy - Immunizations Immunizations up to date: Yes Hx Diphtheria, Pertussis, Tetanus Vaccination: Yes Review of Systems - Review of Systems Constitutional: No symptoms reported EENT: No symptoms reported Cardiovascular: No symptoms reported Respiratory: No symptoms reported Gastrointestinal: No symptoms reported Genitourinary: No symptoms reported Female Genitourinary: No symptoms reported Musculoskeletal: No symptoms reported Skin: Rash Hematologic/Lymphatic: No symptoms reported Neurological/Psychological: No symptoms reported -: Yes All other systems reviewed and negative Physical Exam - Vital signs Vitals: Temp Pulse Resp BP Pulse Ox 97.9 F 89 18 115/75 96 01/29/20 13:18 01/29/20 13:18 01/29/20 13:18 01/29/20 13:18 01/29/20 13:18 Interpretation: Normal - General General appearance: Appears well, Alert - HEENT Head: Normocephalic, Atraumatic Eyes: Normal Pupils: PERRL - Respiratory Respiratory status: No respiratory distress Chest status: Nontender Breath sounds: Normal Chest palpation: Normal - Cardiovascular Rhythm: Regular Heart sounds: Normal auscultation Murmur: No - Abdominal Inspection: Normal Distension: No distension Bowel sounds: Normal Tenderness: Nontender Organomegaly: No organomegaly - Back Back: Normal, Nontender - Extremities General upper extremity: Normal inspection, Nontender, Normal color, Normal ROM, Normal temperature General lower extremity: Normal inspection, Nontender, Normal color, Normal ROM, Normal temperature, Normal weight bearing. No: Laureen's sign - Neurological Neuro grossly intact: Yes Cognition: Normal Orientation: AAOx4 Bennie Coma Scale Eye Opening: Spontaneous Bennie Coma Scale Verbal: Oriented Bennie Coma Scale Motor: Obeys Commands [place] Coma Scale Total: 15 Speech: Normal Motor strength normal: LUE, RUE, LLE, RLE Sensory: Normal - Psychological Associated symptoms: Normal affect, Normal mood - Skin Skin Temperature: Warm Skin Moisture: Dry Skin Color: Normal Skin irregularity: Rash Location of irregularity: Abdomen, Chest, Back, Extremities, Other Character of irregularity: Erythematous - Psoriasis Course - Vital Signs Vital signs: Temp Pulse Resp BP Pulse Ox 97.9 F 89 18 115/75 96 01/29/20 13:18 01/29/20 13:18 01/29/20 13:18 01/29/20 13:18 01/29/20 13:18 Discharge - Discharge Clinical Impression: Pityriasis in adult Condition: Stable Disposition: HOME, SELF-CARE Additional Instructions: Pityriasis Rosea Your rash is due to pityriasis rosea. This is a harmless disease lasting about four to eight weeks. It's probably caused by a virus. There is no treatment which will decrease either the severity or the duration of the rash. The rash will gradually fade away, leaving light spots in its place. These will blend in with the normal skin over a few months. Some dermatologists recommend occasional brief sun exposure to the trunk. Pityriasis rosea does not cause fever, joint swelling, headache, or body aches. Should such symptoms develop, see your doctor for re-evaluation. Calamine lotion, Benadryl lotion, Caladryl lotion, Epson salt baths, oatmeal baths, all these can help with the itching heart showers will actually make the itching worse Can use steroid creams may help with the itching Antihistamines An antihistamine has been prescribed to control your symptoms. Antihistamines are used for many reasons, including itching, watering eyes, runny nose, allergic swelling, hives, and insect stings. Antihistamines may cause drowsiness, especially with the first dose. Do not operate machinery or drive while under the effects of the medication. Other common side effects include dry mouth and eyes. In older persons, antihistamines can occasionally cause urinary retention, constipation, and trouble focusing the eyes. Do not combine the medication with alcohol, or with any other medication without talking to your doctor. FOLLOW-UP CARE: If you have been referred to a physician for follow-up care, call the physicians office for an appointment as you were instructed or within the next two days. If you experience worsening or a significant change in your symptoms, notify the physician immediately or return to the Emergency Department at any time for re-evaluation. Forms: Smoking Cessation Education, Return to Work Referrals: [facility] [Provider Group] - Follow up as needed [facility] [Provider Group] - Follow up as needed [facility] [Provider Group] - Follow up as needed [facility] [Provider Group] - Follow up as needed
== END 2020-01-29 13:38 | disposition home or self-care (01) ==
LOC: ER 13:16
DX: L21.0 Seborrhea capitis (principal); R21 Rash and other nonspecific skin eruption; F17.210 Nicotine dependence, cigarettes, uncomplicated; I10 Essential (primary) hypertension
CPT/HCPCS: 99282; 99406

== ENCOUNTER 2020-08-13 16:39 | Emergency (ER) | payer MEDICAID ==
[2020-08-13] MEDS ORDERED: PREDNISONE 20 MG TABLET PO ONE (17:37)
[2020-08-13] MEDS ORDERED: IPRATROPIUM/ALBUTEROL 0.5-2.5 MG/3 ML AMPUL NEB ONE ×2 (17:37→20:10)
[2020-08-13] MEDS ORDERED: ALBUTEROL SULFATE 0.083% NEB 2.5 MG/3 ML AMPUL NEB ONE ×2 (17:39→20:12)
--- NOTE | 2020-08-13 18:09 | RADIOLOGY REPORT (SQ) ---
EXAM DESCRIPTION: CHEST SINGLE VIEW IMAGES COMPLETED DATE/TIME: 08/13/2020 5:58 pm REASON FOR STUDY: cough, sob COMPARISON: 11/28/2019. EXAM PARAMETERS: NUMBER OF VIEWS: One view. TECHNIQUE: Single frontal radiographic view of the chest acquired. RADIATION DOSE: NA LIMITATIONS: None. FINDINGS: LUNGS AND PLEURA: Several hazy densities scattered throughout both lungs. MEDIASTINUM AND HILAR STRUCTURES: No masses. Contour normal. HEART AND VASCULAR STRUCTURES: Heart normal in size. Normal vasculature. BONES: No acute findings. HARDWARE: None in the chest. OTHER: No other significant finding. IMPRESSION: SUBTLE HAZY DENSITIES SCATTERED THROUGHOUT BOTH LUNGS. CONCERNING FOR DEVELOPING PNEUMO USMAN. TECHNICAL DOCUMENTATION: JOB ID: [id number] [employer]- All Rights Reserved Reading location - IP/workstation name: [email or web address]
[2020-08-13] MEDS ORDERED: CEFTRIAXONE 1 GM/D5W RTU 1 GM/50 ML RTUPB IV ONE (18:14)
--- NOTE | 2020-08-13 18:35 | ER Document Report ---
ED Respiratory Problem - General Mode of Arrival: Ambulatory Information source: Patient TRAVEL OUTSIDE OF THE [place] IN LAST 30 DAYS: No - HPI Patient complains to provider of: Cough, Short of breath Onset: Other - 4 days Duration: Worse/persistent Quality of pain: Achy Context: Hx asthma, Smoker Cough: Nonproductive Associated symptoms: Congestion, Cough, Short of breath, Sore Throat, Wheezing. denies: Fever Similar symptoms previously: Yes Recently seen / treated by doctor: No <MICKIE CURRY - Last Filed: 08/13/20 20:11> <SOWMYA RO - Last Filed: 08/13/20 23:03> - General Chief Complaint: Shortness Of Breath Stated Complaint: SHORT OF BREATH Time Seen by Provider: 08/13/20 17:04 Notes: Patient presents complaining of cough for the past 4 days. Patient complains of chest pain with deep inspiration. Patient complains of difficulty breathing. Patient has been using inhalers at home and states that this helps her symptoms temporarily and then she starts to have shortness of breath again. Patient reports multiple sick contacts in the household. Patient does complain of sore throat and congestion. No fever, no nausea vomiting or diarrhea. Patient states she has had difficulty breathing in the past that did require intubation. Patient does have a history of asthma and does continue to smoke. (MICKIE CURRY) - Related Data Allergies/Adverse Reactions: No Known Allergies Allergy (Verified 08/13/20 17:21) Past Medical History - General Information source: Patient - Social History Smoking Status: Current Every Day Smoker Frequency of alcohol use: None Drug Abuse: None Occupation: None Lives with: Family Family History: Reviewed & Not Pertinent - Past Medical History Cardiac Medical History: Reports: Hx Hypertension Pulmonary Medical History: Reports: Hx Asthma, Hx Pneumonia, Hx Intubation, Hx Respiratory Failure Neurological Medical History: Denies: Hx Migraine, Hx Seizures Musculoskeletal Medical History: Denies Hx Arthritis Psychiatric Medical History: Reports: Hx Anxiety, Hx Bipolar Disorder, Hx Depression, Hx Post Traumatic Stress Disorder Infectious Medical History: Reports: Hx C-Diff Past Surgical History: Reports: Hx Section, Hx Cholecystectomy - Immunizations Immunizations up to date: Yes Hx Diphtheria, Pertussis, Tetanus Vaccination: Yes <MICKIE CURRY - Last Filed: 08/13/20 20:11> Review of Systems - Review of Systems Constitutional: No symptoms reported. denies: Fever EENT: Nose congestion, Throat pain Cardiovascular: No symptoms reported Respiratory: Cough, Hurts to breathe, Short of breath Gastrointestinal: No symptoms reported. denies: Abdominal pain, Diarrhea, Naus ea, Vomiting Genitourinary: No symptoms reported Female Genitourinary: No symptoms reported Musculoskeletal: No symptoms reported Skin: No symptoms reported Hematologic/Lymphatic: No symptoms reported Neurological/Psychological: No symptoms reported <MICKIE CURRY - Last Filed: 08/13/20 20:11> Physical Exam - General General appearance: Alert In distress: None - HEENT Head: Normocephalic, Atraumatic Eyes: Normal Conjunctiva: Normal Nasal: Normal Mouth/Lips: Normal Mucous membranes: Normal Neck: Normal, Supple. No: Lymphadenopathy - Respiratory Respiratory status: Tachypnea. No: Labored Chest status: Pain with cough Breath sounds: Nonproductive cough, Wheezing Chest palpation: Normal - Cardiovascular Rhythm: Regular Heart sounds: S1 appreciated, S2 appreciated - Abdominal Inspection: Normal Tenderness: Nontender - Back Back: Normal, Nontender. No: CVA tenderness - Extremities General upper extremity: Normal inspection, Normal strength General lower extremity: Normal inspection, Normal strength - Neurological Neuro grossly intact: Yes Cognition: Normal [place] Coma Scale Eye Opening: Spontaneous Bennie Coma Scale Verbal: Oriented Bennie Coma Scale Motor: Obeys Commands [place] Coma Scale Total: 15 - Psychological Associated symptoms: Normal affect, Normal mood - Skin Skin Temperature: Warm Skin Moisture: Dry Skin Color: Normal <MICKIE CURRY - Last Filed: 08/13/20 20:11> - Vital signs Vitals: Temp Pulse Resp BP Pulse Ox 98.3 F 86 24 H 111/61 98 08/13/20 16:45 08/13/20 16:45 08/13/20 16:45 08/13/20 16:45 08/13/20 16:45 Course - Laboratory Result Diagrams: 08/13/20 19:57 08/13/20 19:57 - Diagnostic Test Radiology reviewed: Image reviewed, Reports reviewed - EKG Interpretation by Ne EKG shows normal: Sinus rhythm Rate: Normal Rhythm: NSR <MICKIE CURRY - Last Filed: 08/13/20 20:11> - Laboratory Result Diagrams: 08/13/20 19:57 08/13/20 19:57 <SOWMYA RO - Last Filed: 08/13/20 23:03> - Re-evaluation Re-evalutation: 08/13/20 20:11 Report and handoff given to Sowmya Ro NP (MICKIE CURRY) 08/13/20 21:15 Patient reevaluated at this time. Patient sitting up in the stretcher. She is on 2 L of oxygen. At this time she does not appear to be in any acute distress. The nursing staff is attempting to get another IV. Patient denies any needs. 08/13/20 22:54 Patient left AMA. I had a lengthy discussion with the patient and attempt to get her to stay for continued medical treatment. Patient reported she was u nhappy about having to have multiple venipunctures. Unfortunately despite counseling patient's on risks of leaving to include respiratory failure and patient opts to leave, she states she is driving straight to another hospital. (SOWMYA RO) - Vital Signs Vital signs: Temp Pulse Resp BP Pulse Ox 98.3 F 86 21 H 111/61 100 08/13/20 16:45 08/13/20 16:45 08/13/20 21:00 08/13/20 16:45 08/13/20 21:00 - Laboratory Laboratory results interpreted by me: 08/13/20 08/13/20 08/13/20 19:57 19:57 21:25 WBC 17.3 H Hgb 10.8 L Hct 32.9 L MCH 26.2 L RDW 15.6 H Absolute Neuts (auto) 14.0 H Seg Neutrophils % 81.1 H ABG pO2 78.7 L Sodium 130.6 L BUN 5 L Creatinine 0.49 L Direct Bilirubin 0.5 H AST 103 H ALT 80 H - EKG Interpretation by Me Additional EKG results interpreted by me: 08/13/20 19:40 Sinus rhythm with a rate of 77, QTc 485 with borderline prolongation. No acute ischemic changes (MICKIE CURRY) Discharge <MICKIE CURRY - Last Filed: 08/13/20 20:11> <SOWMYA RO - Last Filed: 08/13/20 23:03> - Discharge Clinical Impression: Shortness of breath, Cough Disposition: AGAINST MEDICAL ADVICE
[2020-08-13] MEDS ORDERED: AZITHROMYCIN INJ 500 MG VIAL IV ONE (19:05)
[2020-08-13 20:11] LABS: ABSOLUTE EOSINOPHILS # (AUTO) 0.3 10^3/uL (0.0-0.6); ABSOLUTE LYMPHOCYTES (AUTO) 2.5 10^3/uL (0.5-4.7); ABSOLUTE MONOCYTES (AUTO) 0.5 10^3/uL (0.1-1.4); BASOPHILS % (AUTO) 0.1 % (0-2); EOSINOPHILS % (AUTO) 1.5 % (0-6); HEMATOCRIT 32.9 % (36.0-47.0); HEMOGLOBIN 10.8 g/dL (12.0-15.5); LYMPHOCYTES % (AUTO) 14.3 % (13-45); MEAN CORPUSCULAR HEMOGLOBIN 26.2 pg (27.0-33.4); MEAN CORPUSCULAR HGB CONC 32.9 g/dL (32.0-36.0); MEAN CORPUSCULAR VOLUME 80 fl (80-97); PLATELET COUNT 283 10^3/uL (150-450); RED BLOOD COUNT 4.13 10^6/uL (3.72-5.28); RED CELL DISTRIBUTION WIDTH 15.6 % (11.5-14.0); SEGMENTED NEUTROPHILS % (AUTO) 81.1 % (42-78); TOTAL CELLS COUNTED % (AUTO) 100 %; WHITE BLOOD COUNT 17.3 10^3/uL (4.0-10.5)
[2020-08-13] MEDS ORDERED: PREDNISONE 20 MG TABLET ONE (20:12)
--- NOTE | 2020-08-13 20:54 | EKG REPORT ---
SEVERITY:- BORDERLINE ECG - SINUS RHYTHM BORDERLINE PROLONGED QT INTERVAL : Confirmed by: Cuong Pelayo MD 13-Aug-2020 20:53:22
[2020-08-13 21:05] LABS: ALBUMIN 3.9 g/dL (3.5-5.0); ALKALINE PHOSPHATASE 116 U/L (38-126); ANION GAP 10 (5-19); ASPARTATE AMINO TRANSFERASE 103 U/L (14-36); BILIRUBIN,DIRECT 0.5 mg/dL (0.0-0.4); BILIRUBIN,TOTAL 0.9 mg/dL (0.2-1.3); BLOOD UREA NITROGEN 5 mg/dL (7-20); CALCIUM 8.5 mg/dL (8.4-10.2); CARBON DIOXIDE 22 mmol/L (22-30); CHLORIDE 99 mmol/L (98-107); GLUCOSE 97 mg/dL (75-110); POTASSIUM 3.7 mmol/L (3.6-5.0); TOTAL PROTEIN 7.1 g/dL (6.3-8.2)
[2020-08-13 21:21] LABS: A TYPE INFLUENZA AG NEGATIVE (NEGATIVE); B INFLUENZA AG NEGATIVE (NEGATIVE)
[2020-08-13 21:57] LABS: ARTERIAL BLOOD BASE EXCESS -0.7 mmol/L; ARTERIAL BLOOD FIO2 2 L; ARTERIAL BLOOD H2CO3 1.16 mmol/L (1.05-1.35); ARTERIAL BLOOD HCO3 23.8 mmol/L (20-24); ARTERIAL BLOOD O2 SATURATION 95.8 % (94-98); ARTERIAL BLOOD PCO2 38.7 mmHg (35-45); ARTERIAL BLOOD PH 7.41 (7.35-7.45); ARTERIAL BLOOD PO2 78.7 mmHg (80-100)
[2020-08-13 23:01] VITALS: BP 133/77
== END 2020-08-13 22:55 | disposition left against medical advice (07) ==
LOC: ER 16:39
DX: R06.02 Shortness of breath (principal); R05 Cough; R06.2 Wheezing; F17.200 Nicotine dependence, unspecified, uncomplicated; Z20.828 Contact with and (suspected) exposure to other viral communicable diseases; I10 Essential (primary) hypertension; Z90.49 Acquired absence of other specified parts of digestive tract
CPT/HCPCS: 93005; 94640; 99285; 96365; 96368; 36415; 87040; 87070; 87880; 82803; 85025; 87635; 80053; 84484; 87804; 71045; 93010; 36600; J7512; J0456; J0696; J7613; C9803